=== PATIENT | male | born 1965 | race Hispanic/Latino ===

== ENCOUNTER 2016-10-03 23:57 | Emergency (ER) | payer MEDICAID ==
[2016-10-03 23:57] VITALS: BMI 31.7
[2016-10-04] MEDS ORDERED: Sodium Chloride 0.9% 1,000 ML IV ONE (00:22)
[2016-10-04] MEDS ORDERED: Albuterol-Ipratrop 3 mg / 0.5 (3 ml) UD INH STA (00:22)
--- NOTE | 2016-10-04 00:24 | C.PDOC ---
History Of Present Illness 51 y/o male presents to ED with c/o chest discomfort and SOB. Patient reports history of COPD and notes he ran out of his medications. Otherwise, denies dizziness, fever, chills, nausea, vomiting, or other associated symptoms. Time Seen by Provider: 10/04/16 00:17 Chief Complaint (Nursing): Chest Pain History Per: Patient History/Exam Limitations: no limitations Onset/Duration Of Symptoms: Days Current Symptoms Are (Timing): Still Present Associated Symptoms: Dyspnea Recent travel outside of the [place]: No Past Medical History Reviewed: Historical Data, Nursing Documentation, Vital Signs Vital Signs: Last Vital Signs Temp 98.7 F 10/04/16 02:30 Pulse 77 10/04/16 02:30 Resp 20 10/04/16 02:30 BP 146/80 10/04/16 02:30 Pulse Ox 96 10/04/16 02:30 - Medical History PMH: Anxiety, Arthritis, Back Problems (chronic back pain ), Bipolar Disorder, COPD, Depression, Emphysema, Fractures (skull, right arm, right pinky), HTN, Pneumonia, Sleep Apnea Surgical History: Appendectomy, Hernia Repair (ventral), Tonsillectomy Family History: States: Unknown Family Hx - Social History Hx Tobacco Use: Yes Hx Alcohol Use: Yes Hx Substance Use: Yes (Occasional Marajuana use) - Immunization History Hx Tetanus Toxoid Vaccination: Yes (UTD) Hx Influenza Vaccination: Yes Hx Pneumococcal Vaccination: No Review Of Systems Except As Marked, All Systems Reviewed And Found Negative. Constitutional: Negative for: Fever, Chills Cardiovascular: Positive for: Chest Pain Respiratory: Positive for: Shortness of Breath. Negative for: Cough Gastrointestinal: Negative for: Nausea, Vomiting, Abdominal Pain Skin: Negative for: Rash Neurological: Negative for: Dizziness Physical Exam - Physical Exam Appears: Non-toxic, No Acute Distress Skin: Normal Color, Warm, Dry Head: Atraumatic, Normacephalic Chest: Symmetrical Cardiovascular: Rhythm Regular Respiratory: No Accessory Muscle Use, No Rales, Rhonchi (bilateral ), Wheezing ( expiratory bilateral ), Other (mildy dyspneic) Gastrointestinal/Abdominal: Soft, No Tenderness, No Guarding, No Rebound Back: Normal Inspection Extremity: Normal ROM, Capillary Refill (< 2 sec. ) Neurological/Psych: Oriented x3, Normal Speech, Normal Cognition ED Course And Treatment - Laboratory Results Result Diagrams: 10/04/16 00:47 10/04/16 00:47 ECG: Interpreted By Me, Viewed By Me ECG Rhythm: Sinus Rhythm ECG Interpretation: Normal Interpretation Of ECG: NSR, normal tracings. Rate From EC (bpm) O2 Sat by Pulse Oximetry: 93 Pulse Ox Interpretation: Abnormal Progress Note: EKG, CxR, cardiac labs/bloodwork ordered and reviewed. Treated with duoneb, prednisone, and IVFs. @02:20 - Patient is no longer dyspneic, with good air entry, and clear lung sounds. No longer has rhonchi. Disposition Counseled Patient/Family Regarding: Diagnosis - Disposition Referrals: [facility] [Outside] Disposition: HOME/ ROUTINE Disposition Time: 02:35 Condition: IMPROVED Prescriptions: Methylprednisolone [Medrol Dose Pack (21 tabs)] 4 mg PO DAILY #21 mg Albuterol Sulfate [Proventil Hfa] 6.7 gm IH Q6 #1 hfa.aer.ad Instructions: COPD (Chronic Obstructive Pulmonary Disease) (GEN) - POA Present On Arrival: None - Clinical Impression Clinical Impression: Pulmonary emphysema - Scribe Statement The provider has reviewed the documentation as recorded by the Scribe Provider Attestation: Barrie Lawton Provider Scribe Attestation: All medical record entries made by the Scribe were at my direction and personally dictated by me. I have reviewed the chart and agree that the record accurately reflects my personal performance of the history, physical exam, medical decision making, and the department course for this patient. I have also personally directed, reviewed, and agree with the discharge instructions and disposition.
[2016-10-04] MEDS ORDERED: Albuterol-Ipratrop 3 mg / 0.5 (3 ml) UD ONE (00:26)
[2016-10-04 00:51] LABS: BASO % 0.6 % (0.0-2.0); EOS # 0.1 K/uL (0.0-0.7); EOS % 0.9 % (0.0-4.0); HEMATOCRIT 49.4 % (35.0-51.0); LYMPH # 1.4 K/uL (1.0-4.3); LYMPH % 18.8 % (20.0-40.0); MEAN CELL VOLUME 96.1 fL (80.0-94.0); MEAN CORPUSCULAR HEMOGLOBIN 32.3 pg (27.0-31.0); MEAN CORPUSCULAR HGB CONC 33.7 g/dL (33.0-37.0); MEAN PLATELET VOLUME 8.2 fL (7.2-11.7); MONO # 0.6 K/uL (0.0-0.8); MONO % 7.5 % (0.0-10.0); NRBC % 0.1 % (0.0-2.0); RED CELL DISTRIBUTION WIDTH 14.4 % (11.5-14.5); WHITE BLOOD COUNT 7.4 K/uL (4.8-10.8)
[2016-10-04 00:53] VITALS: RESP 20
[2016-10-04 01:02] LABS: CHLORIDE 100 mmol/L (98-107); SODIUM 139 mmol/L (132-148)
[2016-10-04 01:03] LABS: POTASSIUM 3.6 mmol/L (3.6-5.2)
[2016-10-04 01:05] LABS: ALB/GLOB RATIO 1.1 (1.0-2.1); ALKALINE PHOSPHATASE 85 U/L (38-126); AST/SGOT 92 U/L (17-59); BILIRUBIN,TOTAL 0.5 mg/dL (0.2-1.3); BLOOD UREA NITROGEN 12 mg/dL (9-20); CARBON DIOXIDE 26 mmol/L (22-30); GFR AFRICAN-AMERICAN > 60; GLUCOSE,RANDOM 168 mg/dL (75-110); TOTAL PROTEIN 6.8 g/dL (6.3-8.3)
[2016-10-04 01:06] LABS: ALT/SGPT 169 U/L (21-72); CALCIUM 8.5 mg/dl (8.6-10.4)
[2016-10-04] MEDS ORDERED: Albuterol HFA 90 mcg/actuation (8 g) INH STA (02:41)
[2016-10-04 05:06] VITALS: BP 159/64; PULSE 68; TEMP 98; O2SAT 98
--- NOTE | 2016-10-04 08:49 | RAD ---
PROCEDURE: CHEST RADIOGRAPH, 1 VIEW HISTORY: Shortness of breath COMPARISON: 05/27/2016 FINDINGS: LUNGS: Mild venous congestion. Bilateral hilar prominence. ; left greater than right. Bibasilar airspace opacities. PLEURA: No pneumothorax or pleural fluid seen. CARDIOVASCULAR: Tortuous ectatic aorta. OSSEOUS STRUCTURES: No significant abnormalities. VISUALIZED UPPER ABDOMEN: Normal. OTHER FINDINGS: None. IMPRESSION: Mild venous congestion. Bilateral hilar prominence. ; left greater than right. Bibasilar airspace opacities.
--- NOTE | 2016-10-27 11:05 | CARD ---
APPROVED REPORT EKG Measurement Heart [id number] 114P36 [id number] <Conclusion> Normal sinus rhythm Normal ECG
== END 2016-10-04 05:18 | disposition home or self-care (01) ==
LOC: C.ER 23:57
DX: J43.9 Emphysema, unspecified (principal)
CPT/HCPCS: 71010; 80053; 83880; 84484; 85025; 85378; 94640; 96361; 96374; 99285; J2930; J7040

== ENCOUNTER 2016-10-14 02:34 | Emergency (ER) | payer MEDICAID ==
[2016-10-14 02:35] VITALS: BMI 31.7
--- NOTE | 2016-10-14 03:20 | C.PDOC ---
History Of Present Illness 51 year old male presents to the ED with c/o recurring chest pain and SOB that began this evening. Pt describes pain as being on the left side of the chest radiating to the left arm. Pt states "Its happening due to anxiety and depression". Pt has had multiple prior visits at [facility] and [facility] for the same complaints. Pt notes receiving insurance card yesterday and had not been able to follow up. Pt denies fever, chills, dizziness, nausea, vomiting, diarrhea, or any other complaints. RECUR CP, SOB THIS EVENING. L SIDED RADIATION L ARM. +SOB. "ITS HAPPENING DUE TO ANXIETY AND DEPRESSION". MULT PRIOR VISITS @ [facility] AND [facility] FOR SAME. PS GOT INSURANCE CARD YEST AND HAS NOT BEEN ABLE TO FOLLOW UP. EXAM APPEARS COMFORTABLE NAD NONTOXIC LUNGS NEG REMAINDER NEG Time Seen by Provider: 10/14/16 03:01 Chief Complaint (Nursing): Chest Pain History Per: Patient History/Exam Limitations: no limitations Onset/Duration Of Symptoms: Hrs (SOB), Intermittent Episodes (Chest pain, left side) Current Symptoms Are (Timing): Still Present Severity: Mild Associated Symptoms: denies: Nausea Past Medical History Reviewed: Historical Data, Nursing Documentation, Vital Signs Vital Signs: Last Vital Signs Temp 97.2 F L 10/14/16 02:43 Pulse 70 10/14/16 02:43 Resp 14 10/14/16 02:43 BP 125/80 10/14/16 02:43 Pulse Ox 97 10/14/16 04:15 - Medical History PMH: Anxiety, Arthritis, Back Problems (chronic back pain ), Bipolar Disorder, COPD, Depression, Emphysema, Fractures (skull, right arm, right pinky), HTN, Pneumonia, Sleep Apnea Denies: Chronic Kidney Disease Surgical History: Appendectomy, Hernia Repair (ventral), Tonsillectomy Family History: States: Unknown Family Hx - Social History Hx Tobacco Use: Yes Hx Alcohol Use: Yes Hx Substance Use: Yes (Occasional Marajuana use) - Immunization History Hx Tetanus Toxoid Vaccination: Yes (UTD) Hx Influenza Vaccination: Yes Hx Pneumococcal Vaccination: No Review Of Systems Except As Marked, All Systems Reviewed And Found Negative. Constitutional: Negative for: Fever, Chills Cardiovascular: Positive for: Chest Pain Respiratory: Positive for: Shortness of Breath Gastrointestinal: Negative for: Nausea, Vomiting, Diarrhea Neurological: Negative for: Dizziness Physical Exam - Physical Exam Appears: Non-toxic, No Acute Distress (comfortable) Skin: Warm, Dry Head: Atraumatic, Normacephalic Eye(s): bilateral: Normal Inspection Chest: Symmetrical, No Tenderness Respiratory: Normal Breath Sounds, No Rales, No Rhonchi, No Wheezing Gastrointestinal/Abdominal: Soft, No Tenderness Neurological/Psych: Oriented x3, Normal Speech, Normal Cognition, Other (No focal deficit) ED Course And Treatment - Laboratory Results Result Diagrams: 10/14/16 04:02 10/14/16 04:02 ECG: Interpreted By Me ECG Rhythm: Sinus Rhythm ECG Interpretation: Normal Rate From EC O2 Sat by Pulse Oximetry: 97 (Room air) Pulse Ox Interpretation: Normal Progress - Data Reviewed Data Reviewed: Lab, Diagnostic imaging, EKG, Old records Medical Decision Making Medical Decision Making: Plans: -EKG -Labs -Blood works -CXR -IV fluids -Reassess and disposition Disposition Counseled Patient/Family Regarding: Studies Performed, Diagnosis, Need For Followup, Rx Given, Smoking Cessation - Disposition Referrals: [facility] [Outside] [facility] [Outside] Disposition: HOME/ ROUTINE Disposition Time: 05:15 Condition: GOOD Instructions: Chest Pain (ED) - Clinical Impression Clinical Impression: Chest pain - Scribe Statement The provider has reviewed the documentation as recorded by the Scribe Cristiano hardwick All medical record entries made by the Scribe were at my direction and personally dictated by me. I have reviewed the chart and agree that the record accurately reflects my personal performance of the history, physical exam, medical decision making, and the department course for this patient. I have also personally directed, reviewed, and agree with the discharge instructions and disposition.
[2016-10-14 04:07] LABS: BASO # 0.1 K/uL (0.0-0.2); BASO % 1.3 % (0.0-2.0); EOS # 0.3 K/uL (0.0-0.7); EOS % 4.1 % (0.0-4.0); HEMATOCRIT 51.7 % (35.0-51.0); LYMPH # 2.3 K/uL (1.0-4.3); LYMPH % 34.8 % (20.0-40.0); MEAN CELL VOLUME 95.9 fL (80.0-94.0); MEAN CORPUSCULAR HEMOGLOBIN 32.3 pg (27.0-31.0); MEAN CORPUSCULAR HGB CONC 33.6 g/dL (33.0-37.0); MEAN PLATELET VOLUME 8.2 fL (7.2-11.7); MONO # 0.6 K/uL (0.0-0.8); MONO % 8.7 % (0.0-10.0); RED CELL DISTRIBUTION WIDTH 14.7 % (11.5-14.5); WHITE BLOOD COUNT 6.5 K/uL (4.8-10.8)
[2016-10-14 04:14] LABS: CHLORIDE 99 mmol/L (98-107)
[2016-10-14 04:15] LABS: SODIUM 146 mmol/L (132-148)
[2016-10-14 04:17] LABS: ALB/GLOB RATIO 1.4 (1.0-2.1); ALKALINE PHOSPHATASE 91 U/L (38-126); ALT/SGPT 335 U/L (21-72); AST/SGOT 170 U/L (17-59); BILIRUBIN,TOTAL 0.7 mg/dL (0.2-1.3); BLOOD UREA NITROGEN 10 mg/dL (9-20); CARBON DIOXIDE 29 mmol/L (22-30); GFR AFRICAN-AMERICAN > 60; TOTAL PROTEIN 6.7 g/dL (6.3-8.3)
[2016-10-14 04:18] LABS: CALCIUM 8.7 mg/dl (8.6-10.4); GLUCOSE,RANDOM 125 mg/dL (75-110)
[2016-10-14 05:36] VITALS: BP 124/72; PULSE 73; RESP 20; TEMP 97.8; O2SAT 95
--- NOTE | 2016-10-14 10:49 | RAD ---
PROCEDURE: CHEST RADIOGRAPH, 1 VIEW HISTORY: chest pain COMPARISON: 10/04/2016 FINDINGS: LUNGS: Moderate venous congestion with bilateral hilar prominence. Bibasilar airspace opacities. PLEURA: No pneumothorax or pleural fluid seen. CARDIOVASCULAR: Normal. OSSEOUS STRUCTURES: No significant abnormalities. VISUALIZED UPPER ABDOMEN: Normal. OTHER FINDINGS: None. IMPRESSION: Moderate venous congestion with bilateral hilar prominence. Bibasilar airspace opacities.
--- NOTE | 2016-10-18 12:36 | CARD ---
APPROVED REPORT EKG Measurement Heart [id number] 126P18 [id number] <Conclusion> Normal sinus rhythm Incomplete right bundle branch block Borderline ECG
== END 2016-10-14 05:48 | disposition home or self-care (01) ==
LOC: C.ER 02:34
DX: R07.9 Chest pain, unspecified (principal)

== ENCOUNTER 2016-10-22 02:38 | Emergency (ER) | payer MEDICAID ==
[2016-10-22 02:39] VITALS: BMI 31.7
--- NOTE | 2016-10-22 03:03 | C.PDOC ---
Time Seen by Provider: 10/22/16 03:03 Chief Complaint (Nursing): Chest Pain Past Medical History - Medical History PMH: Anxiety, Arthritis, Back Problems (chronic back pain ), Bipolar Disorder, COPD, Depression, Emphysema, Fractures (skull, right arm, right pinky), HTN, Pneumonia, Sleep Apnea Denies: Chronic Kidney Disease Surgical History: Appendectomy, Hernia Repair (ventral), Tonsillectomy Family History: States: Unknown Family Hx - Social History Hx Tobacco Use: Yes Hx Alcohol Use: Yes Hx Substance Use: Yes (Occasional Marajuana use) - Immunization History Hx Tetanus Toxoid Vaccination: Yes (UTD) Hx Influenza Vaccination: Yes Hx Pneumococcal Vaccination: No ED Course And Treatment ECG: Interpreted By Me, Viewed By Me ECG Rhythm: Sinus Rhythm (69), Nonspecific Changes O2 Sat by Pulse Oximetry: 99 Pulse Ox Interpretation: Normal
[2016-10-22 03:13] VITALS: RESP 16
--- NOTE | 2016-10-22 03:14 | C.PDOC ---
History Of Present Illness Patient presents to ED with initial complaint of chest pain but upon speaking to patient, he states he has been drinking and needs a place to stay. Patient presents abrasion on forehead. Patient denies fever, chills, nausea/vomiting and diarrhea. Patient presents alcohol in breath. Time Seen by Provider: 10/22/16 03:03 Chief Complaint (Nursing): Chest Pain History Per: Patient History/Exam Limitations: no limitations Onset/Duration Of Symptoms: Days Severity: Mild Pain Scale Rating Of: 2 Reports Recently: Seen In ED, Treated By A Physician, Hospitalized Recent travel outside of the [place]: No Additional History Per: Patient Past Medical History Reviewed: Historical Data, Nursing Documentation, Vital Signs Vital Signs: Last Vital Signs Temp 97.9 F 10/22/16 05:52 Pulse 82 10/22/16 05:52 Resp 16 10/22/16 05:52 BP 140/85 10/22/16 05:52 Pulse Ox 95 10/22/16 05:52 - Medical History PMH: Anxiety, Arthritis, Back Problems (chronic back pain ), Bipolar Disorder, COPD, Depression, Emphysema, Fractures (skull, right arm, right pinky), HTN, Pneumonia, Sleep Apnea Surgical History: Appendectomy, Hernia Repair (ventral), Tonsillectomy Family History: States: No Known Family Hx - Social History Hx Tobacco Use: Yes Hx Alcohol Use: Yes Hx Substance Use: Yes (Occasional Marajuana use) - Immunization History Hx Tetanus Toxoid Vaccination: Yes (UTD) Hx Influenza Vaccination: Yes Hx Pneumococcal Vaccination: No Review Of Systems Constitutional: Negative for: Fever, Chills Eyes: Negative for: Pain, Vision Change Skin: Positive for: Lesions (Abrasion in forehead). Negative for: Rash Neurological: Negative for: Change in Speech, Seizures, Dizziness Psych: Negative for: Anxiety Physical Exam - Physical Exam Appears: Non-toxic Skin: Warm Head: Abrasion (Forehead) Eye(s): bilateral: Normal Inspection, PERRL, EOMI Oral Mucosa: Moist Cardiovascular: Rhythm Regular Respiratory: No Rales, No Rhonchi, No Wheezing Neurological/Psych: Oriented x3, Normal Speech, Normal Cognition Gait: Steady ED Course And Treatment O2 Sat by Pulse Oximetry: 93 (Room air) Pulse Ox Interpretation: Normal Reevaluation Time: 06:03 Reassessment Condition: Improved Disposition Counseled Patient/Family Regarding: Studies Performed, Diagnosis, Need For Followup - Disposition Disposition: HOME/ ROUTINE Disposition Time: 03:13 Condition: GOOD - Clinical Impression Clinical Impression: Alcohol abuse - PA / [employer]PER[employer] / Resident Statement MD/DO has reviewed & agrees with the documentation as recorded. - Scribe Statement The provider has reviewed the documentation as recorded by the Cathyibotis Barrett All medical record entries made by the Elder were at my direction and personally dictated by me. I have reviewed the chart and agree that the record accurately reflects my personal performance of the history, physical exam, medical decision making, and the department course for this patient. I have also personally directed, reviewed, and agree with the discharge instructions and disposition.
[2016-10-22 05:54] VITALS: BP 140/85; PULSE 82; TEMP 97.9
[2016-10-22 06:04] VITALS: O2SAT 93
--- NOTE | 2016-10-23 13:15 | CARD ---
APPROVED REPORT EKG Measurement Heart [id number] 124P30 [id number] <Conclusion> Normal sinus rhythm Normal ECG
== END 2016-10-22 05:54 | disposition home or self-care (01) ==
LOC: C.ER 02:38
DX: F10.10 Alcohol abuse, uncomplicated (principal); Y90.9 Presence of alcohol in blood, level not specified

== ENCOUNTER 2016-10-25 00:21 | Observation (INO) | payer MEDICAID ==
[2016-10-25 00:21] VITALS: BMI 31.7
--- NOTE | 2016-10-25 00:45 | C.PDOC ---
History Of Present Illness Patient presents to the ED with complaints of cough. Patient is well known to this ED for being undomicilied and is making various demands. Patient was seen at [facility] and was discharged. Patient notes he still smokes and has no other complaints at this time. Time Seen by Provider: 10/25/16 00:45 Chief Complaint (Nursing): Cough, Cold, Congestion History Per: Patient History/Exam Limitations: no limitations Onset/Duration Of Symptoms: Hrs Current Symptoms Are (Timing): Still Present Past Medical History Reviewed: Historical Data, Nursing Documentation, Vital Signs Vital Signs: Last Vital Signs Temp 98.6 F 10/25/16 00:23 Pulse 98 H 10/25/16 00:23 Resp 22 10/25/16 00:23 BP 113/70 10/25/16 00:23 Pulse Ox 92 L 10/25/16 02:48 - Medical History PMH: Anxiety, Arthritis, Back Problems (chronic back pain ), Bipolar Disorder, COPD, Depression, Emphysema, Fractures (skull, right arm, right pinky), HTN, Pneumonia, Sleep Apnea Surgical History: Appendectomy, Hernia Repair (ventral), Tonsillectomy Family History: States: Unknown Family Hx - Social History Hx Tobacco Use: Yes Hx Alcohol Use: Yes Hx Substance Use: Yes (Occasional Marajuana use) - Immunization History Hx Tetanus Toxoid Vaccination: Yes (UTD) Hx Influenza Vaccination: Yes Hx Pneumococcal Vaccination: No Review Of Systems Constitutional: Negative for: Fever, Chills, Sweats Cardiovascular: Negative for: Chest Pain, Palpitations Respiratory: Positive for: Cough. Negative for: Shortness of Breath Gastrointestinal: Negative for: Nausea, Vomiting, Abdominal Pain, Diarrhea Physical Exam - Physical Exam Appears: Non-toxic, No Acute Distress Skin: Warm, Dry Head: Abrasion (left side of forehead that is not new) Neck: Normal ROM, Supple Cardiovascular: Rhythm Regular Respiratory: No Accessory Muscle Use, No Rales, Rhonchi (scattered rhonci), No Stridor, No Wheezing Gastrointestinal/Abdominal: Soft, No Tenderness, No Distention, No Guarding, No Rebound Extremity: Normal ROM, No Tenderness Neurological/Psych: Oriented x3 ED Course And Treatment O2 Sat by Pulse Oximetry: 92 Pulse Ox Interpretation: Normal Reevaluation Time: 05:19 Reassessment Condition: Improved Disposition Counseled Patient/Family Regarding: Studies Performed, Diagnosis, Need For Followup - Disposition Disposition: HOME/ ROUTINE Disposition Time: 00:45 Condition: FAIR - Clinical Impression Clinical Impression: COPD (chronic obstructive pulmonary disease) - Scribe Statement The provider has reviewed the documentation as recorded by the Scribotis Torres All medical record entries made by the Cathyibe were at my direction and personally dictated by me. I have reviewed the chart and agree that the record accurately reflects my personal performance of the history, physical exam, medical decision making, and the department course for this patient. I have also personally directed, reviewed, and agree with the discharge instructions and disposition.
[2016-10-25] MEDS ORDERED: Albuterol-Ipratrop 3 mg / 0.5 (3 ml) UD ONE (00:56)
[2016-10-25] MEDS: Albuterol-Ipratrop 3 mg / 0.5 (3 ml) UD IH SCH (01:41)
[2016-10-25 05:53] VITALS: BP 110/70; PULSE 80; RESP 14; TEMP 97.5; O2SAT 95
== END 2016-10-25 05:20 | disposition home or self-care (01) ==
LOC: C.ER 00:21 → C.9OBSV 02:47
PROVIDERS: ADMIT Emergency Medicine; ATTEND Emergency Medicine
DX: J44.9 Chronic obstructive pulmonary disease, unspecified (principal); G47.30 Sleep apnea, unspecified; I10 Essential (primary) hypertension; F17.200 Nicotine dependence, unspecified, uncomplicated

== ENCOUNTER 2016-11-02 02:20 | Emergency (ER) | payer MEDICAID ==
[2016-11-02 02:23] VITALS: BMI 31.7
[2016-11-02 02:36] VITALS: BP 100/63; PULSE 91; RESP 18; TEMP 98; O2SAT 94
--- NOTE | 2016-11-02 02:48 | C.PDOC ---
History Of Present Illness patient presents with some wwheezing and mild shortness of breath. NO f/c/n/v. Speaking in complete sentences. Pt is homeless and had no place to use his nebulizer. Patient still smokes Time Seen by Provider: 11/02/16 02:48 Chief Complaint (Nursing): Shortness Of Breath History Per: Patient History/Exam Limitations: no limitations Onset/Duration Of Symptoms: Days Current Symptoms Are (Timing): Still Present Initiating Event: Out Of Medications Exacerbating Factor(s): Coughing Current Respiratory Medications: See Home Med List Severity: Mild Pain Scale Rating Of: 2 Associated Symptoms: denies: Fever, Chills, Sweating, Productive Cough Reports Recently: Seen In ED, Treated By A Physician, Hospitalized Recent travel outside of the [place]: No Additional History Per: Patient Past Medical History Reviewed: Historical Data, Nursing Documentation, Vital Signs Vital Signs: Last Vital Signs Temp 98.0 F 11/02/16 02:33 Pulse 91 H 11/02/16 02:33 Resp 18 11/02/16 02:33 BP 100/63 11/02/16 02:33 Pulse Ox 94 L 11/02/16 02:55 - Medical History PMH: Anxiety, Arthritis, Back Problems (chronic back pain ), Bipolar Disorder, COPD, Depression, Emphysema, Fractures (skull, right arm, right pinky), HTN, Pneumonia, Sleep Apnea Denies: Chronic Kidney Disease Surgical History: Appendectomy, Hernia Repair (ventral), Tonsillectomy Family History: States: No Known Family Hx - Social History Hx Tobacco Use: Yes Hx Alcohol Use: Yes Hx Substance Use: Yes (Occasional Marajuana use) - Immunization History Hx Tetanus Toxoid Vaccination: Yes (UTD) Hx Influenza Vaccination: Yes Hx Pneumococcal Vaccination: No Review Of Systems Constitutional: Negative for: Fever, Chills ENT: Negative for: Throat Pain Cardiovascular: Negative for: Chest Pain Respiratory: Positive for: Shortness of Breath, Wheezing (few at bases) Gastrointestinal: Negative for: Nausea, Vomiting, Abdominal Pain Genitourinary: Negative for: Dysuria Musculoskeletal: Negative for: Back Pain Skin: Negative for: Rash, Lesions, Jaundice Neurological: Negative for: Weakness Psych: Negative for: Anxiety Physical Exam - Physical Exam Appears: Non-toxic, No Acute Distress Skin: Warm, Dry Eye(s): bilateral: Normal Inspection Nose: No Flaring Oral Mucosa: Moist Neck: Supple Chest: Symmetrical Cardiovascular: Rhythm Regular Respiratory: No Rales, No Rhonchi, Wheezing (few at bases) Gastrointestinal/Abdominal: Soft, No Tenderness Back: No CVA Tenderness Extremity: No Tenderness Neurological/Psych: Oriented x3, Normal Speech, Normal Cognition Gait: Steady ED Course And Treatment O2 Sat by Pulse Oximetry: 94 Pulse Ox Interpretation: Normal Progress Note: nebs Reassessment Condition: Improved Disposition Counseled Patient/Family Regarding: Studies Performed, Diagnosis - Disposition Disposition: HOSPITALIZED Disposition Time: 02:48 Condition: FAIR - Clinical Impression Clinical Impression: COPD (chronic obstructive pulmonary disease)
[2016-11-02] MEDS ORDERED: Albuterol-Ipratrop 3 mg / 0.5 (3 ml) UD ONE (03:15)
[2016-11-02] MEDS: Albuterol-Ipratrop 3 mg / 0.5 (3 ml) UD IH SCH (03:19)
== END 2016-11-02 06:10 | disposition short-term general hospital (02) ==
LOC: C.ER 02:20
DX: J44.9 Chronic obstructive pulmonary disease, unspecified (principal); Z72.0 Tobacco use; Z59.0 Homelessness

== ENCOUNTER 2016-12-14 23:36 | Observation (INO) | payer MEDICAID ==
[2016-12-14 23:36] VITALS: BMI 31.7
--- NOTE | 2016-12-15 00:38 | C.PDOC ---
History Of Present Illness <NiravCathy Madeline - Last Filed: 12/15/16 06:21> <Landy Puentes - Last Filed: 12/15/16 06:43> 51 year old male, with a past medical history of COPD and social history of actively smoking, presents to the ED complaining of wheezing and shortness of breath tonight with no relief after using his Ventolin inhaler. He states cough is productive of clear sputum. Patient denies fever, chest or back pain. ( Cathy Gastelum) History Per: Patient History/Exam Limitations: no limitations Onset/Duration Of Symptoms: Days (tonight) Current Symptoms Are (Timing): Still Present Initiating Event: Upper Respiratory Illness Exacerbating Factor(s): Coughing Current Respiratory Medications: Other (Ventolin) Severity: Mild Pain Scale Rating Of: 3 Associated Symptoms: Productive Cough Additional History Per: Prior Records <NiravCathy Madeline - Last Filed: 12/15/16 06:21> <Landy Puentes - Last Filed: 12/15/16 06:43> Time Seen by Provider: 12/15/16 00:28 Chief Complaint (Nursing): Cough, Cold, Congestion Past Medical History Reviewed: Historical Data, Nursing Documentation, Vital Signs - Medical History PMH: Anxiety, Arthritis, Back Problems (chronic back pain ), Bipolar Disorder, COPD, Depression, Emphysema, Fractures (skull, right arm, right pinky), HTN, Pneumonia, Sleep Apnea Surgical History: Appendectomy, Hernia Repair (ventral), Tonsillectomy Family History: States: Unknown Family Hx - Social History Hx Tobacco Use: Yes Hx Alcohol Use: Yes Hx Substance Use: No - Immunization History Hx Tetanus Toxoid Vaccination: Yes (UTD) Hx Influenza Vaccination: Yes Hx Pneumococcal Vaccination: Yes <GastelumCathy Madeline - Last Filed: 12/15/16 06:21> Review Of Systems Except As Marked, All Systems Reviewed And Found Negative. Constitutional: Negative for: Fever Cardiovascular: Negative for: Chest Pain Respiratory: Positive for: Cough, Shortness of Breath, Wheezing Musculoskeletal: Negative for: Back Pain <NiravCathy Madeline - Last Filed: 12/15/16 06:21> Physical Exam - Physical Exam Appears: Non-toxic, No Acute Distress, Unkempt Skin: Warm, Dry, Other (superficial old abrasions to nose and face) Head: Atraumatic, Normacephalic Neck: Normal ROM, Supple Chest: Symmetrical Cardiovascular: Rhythm Regular Respiratory: No Rales, Rhonchi (at bases), Wheezing (expiratory) Back: Normal Inspection Extremity: Normal ROM, Capillary Refill (<2 seconds), No Deformity, No Swelling , Other (left foot: non-focal, mild tenderness to the dorsal aspect; no swelling , no deformity, no erythema) Neurological/Psych: Oriented x3, Normal Speech, Normal Cognition Gait: Steady <Cathy Gastelum - Last Filed: 12/15/16 06:21> ED Course And Treatment - Laboratory Results Result Diagrams: 12/15/16 00:50 12/15/16 00:50 Lab Interpretation: No Acute Changes O2 Sat by Pulse Oximetry: 96 (room air) Pulse Ox Interpretation: Normal - Radiology CXR: Interpreted by Me, Viewed By Me CXR Interpretation: Yes: COPD <Cathy Gastelum - Last Filed: 12/15/16 06:21> - Laboratory Results Result Diagrams: 12/15/16 00:50 12/15/16 00:50 <Landy Puentes - Last Filed: 12/15/16 06:43> Medical Decision Making <Cathy Gastelum - Last Filed: 12/15/16 06:21> <Landy Puentes - Last Filed: 12/15/16 06:43> Medical Decision Making: Impression: 51 year old patient with wheezing, shortness of breath and left foot pain Plan: * Labs * Duoneb * Solu-Medrol * Left foot x-ray * Chest x-ray Progress: Prior records show patient seen in ED multiple times for similar symptoms, homeless (Cathy Gastelum) ED OBSERVATION Discharge: Yes Date of observation admission: 12/15/16 Time of observation admission: 00:40 <Cathy Gastelum - Last Filed: 12/15/16 06:21> <Landy Puentes - Last Filed: 12/15/16 06:43> - Observation admission statement Patient is being placed in observation because:: SOB (Cathy Gastelum) - Goals of Observation Goals of observation are:: duonebs, steroids, labs, CXR (Cathy Gastelum) - Progress Note Progress Note: 12/15/16 01:39 Patient complains of foot pain, Tylenol PO ordered. Lung sounds mostly improved 12/15/16 03:39 Patient is sleeping comfortably, no acute distress. 12/15/16 05:44 Patient is now awake and alert, no SOB. Patient stable for discharge (Cathy Gastelum) Disposition - Disposition Disposition Time: 05:30 - POA Present On Arrival: None <Cathy Gastelum - Last Filed: 12/15/16 06:21> <Landy Puentes - Last Filed: 12/15/16 06:43> - Disposition Disposition: HOME/ ROUTINE Condition: STABLE - Clinical Impression Clinical Impression: COPD exacerbation - PA / EMPLOYMENT PROGRAMS ANALYST / Resident Statement / has reviewed & agrees with the documentation as recorded. - Scribe Statement The provider has reviewed the documentation as recorded by the Scribe <Cathy Gastelum - Last Filed: 12/15/16 06:21> - PA / EMPLOYMENT PROGRAMS ANALYST / Resident Statement ADEN has reviewed & agrees with the documentation as recorded. <Landy Puentes - Last Filed: 12/15/16 06:43> - Scribe Statement Kimberli Fontenot All medical record entries made by the Scribe were at my direction and personally dictated by me. I have reviewed the chart and agree that the record accurately reflects my personal performance of the history, physical exam, medical decision making, and the department course for this patient. I have also personally directed, reviewed, and agree with the discharge instructions and disposition. (Cathy Gastelum)
[2016-12-15 00:54] LABS: BASO # 0.1 K/uL (0.0-0.2); BASO % 0.8 % (0.0-2.0); EOS # 0.2 K/uL (0.0-0.7); EOS % 2.2 % (0.0-4.0); HEMATOCRIT 49.2 % (35.0-51.0); LYMPH % 25.4 % (20.0-40.0); MEAN CELL VOLUME 96.2 fL (80.0-94.0); MEAN CORPUSCULAR HEMOGLOBIN 32.9 pg (27.0-31.0); MEAN CORPUSCULAR HGB CONC 34.3 g/dL (33.0-37.0); MEAN PLATELET VOLUME 7.9 fL (7.2-11.7); MONO # 0.8 K/uL (0.0-0.8); MONO % 10.4 % (0.0-10.0); RED CELL DISTRIBUTION WIDTH 14.8 % (11.5-14.5); WHITE BLOOD COUNT 7.9 K/uL (4.8-10.8)
[2016-12-15 01:09] LABS: CHLORIDE 97 mmol/L (98-107); POTASSIUM 3.7 mmol/L (3.6-5.2); SODIUM 136 mmol/L (132-148)
[2016-12-15 01:11] LABS: BILIRUBIN,TOTAL 0.7 mg/dL (0.2-1.3); GFR AFRICAN-AMERICAN > 60
[2016-12-15 01:12] LABS: ALB/GLOB RATIO 1.4 (1.0-2.1); ALKALINE PHOSPHATASE 103 U/L (38-126); ALT/SGPT 107 U/L (21-72); AST/SGOT 68 U/L (17-59); BLOOD UREA NITROGEN 17 mg/dL (9-20); CARBON DIOXIDE 26 mmol/L (22-30); GLUCOSE,RANDOM 105 mg/dL (75-110); TOTAL PROTEIN 6.8 g/dL (6.3-8.3)
[2016-12-15 01:13] LABS: CALCIUM 9.1 mg/dl (8.6-10.4)
[2016-12-15] MEDS ORDERED: MethylPREDNISolone 40 mg Vial ONE (01:37)
[2016-12-15] MEDS ORDERED: Albuterol-Ipratrop 3 mg / 0.5 (3 ml) UD ONE (01:46)
[2016-12-15] MEDS: Albuterol-Ipratrop 3 mg / 0.5 (3 ml) UD IH SCH (01:48)
[2016-12-15 01:59] VITALS: RESP 20
[2016-12-15 03:33] VITALS: O2SAT 96
[2016-12-15 06:14] VITALS: BP 149/74; PULSE 104; TEMP 97.8
--- NOTE | 2016-12-15 08:38 | RAD ---
PROCEDURE: Left Foot Radiographs. HISTORY: c.o pain top of foot, no trauma COMPARISON: None. FINDINGS: BONES: Normal. No fracture. JOINTS: Normal. SOFT TISSUES: Normal. OTHER FINDINGS: None. IMPRESSION: Normal left foot radiographs.
--- NOTE | 2016-12-15 08:39 | RAD ---
HISTORY: SOB COMPARISON: 10/14/2016 TECHNIQUE: Chest PA and lateral FINDINGS: LUNGS: No active pulmonary disease. PLEURA: No significant pleural effusion identified. No pneumothorax apparent. CARDIOVASCULAR: Normal. OSSEOUS STRUCTURES: No significant abnormalities. VISUALIZED UPPER ABDOMEN: Normal. OTHER FINDINGS: None. IMPRESSION: No active disease.
== END 2016-12-15 05:45 | disposition home or self-care (01) ==
LOC: C.ER 23:36 → C.9OBSV 12-15 00:40
PROVIDERS: ADMIT Emergency Medicine; ATTEND Emergency Medicine
DX: J44.1 Chronic obstructive pulmonary disease with (acute) exacerbation (principal); I10 Essential (primary) hypertension; F17.210 Nicotine dependence, cigarettes, uncomplicated
CPT/HCPCS: 71020; 73630; 80053; 85025; 96374; G0378; J2930

== ENCOUNTER 2017-01-26 02:15 | Emergency (ER) | payer SELFPAY ==
[2017-01-26 02:16] VITALS: BMI 31.7
[2017-01-26 02:27] VITALS: O2SAT 95
--- NOTE | 2017-01-26 02:37 | C.PDOC ---
History Of Present Illness 51 y/o male presents to emergency department requesting a place to stay. Patient reports he is homeless. Also c/o some right lower leg pain. Denies trauma or injury. Patient previously evaluated for similar in this ER. Denies any other symptoms. Time Seen by Provider: 01/26/17 02:37 Chief Complaint (Nursing): Lower Extremity Problem/Injury History Per: Patient History/Exam Limitations: no limitations Onset/Duration Of Symptoms: Persistent Current Symptoms Are (Timing): Still Present Recent travel outside of the [place]: No Past Medical History Reviewed: Historical Data, Nursing Documentation, Vital Signs Vital Signs: Last Vital Signs Temp 97.7 F 01/26/17 02:24 Pulse 88 01/26/17 02:24 Resp 20 01/26/17 02:24 BP 143/103 H 01/26/17 02:24 Pulse Ox 95 01/26/17 04:33 - Medical History PMH: Anxiety, Arthritis, Back Problems (chronic back pain ), Bipolar Disorder, COPD, Depression, Emphysema, Fractures (skull, right arm, right pinky), HTN, Pneumonia, Sleep Apnea Surgical History: Appendectomy, Hernia Repair (ventral), Tonsillectomy Family History: States: Unknown Family Hx - Social History Hx Tobacco Use: Yes Hx Alcohol Use: Yes Hx Substance Use: No (pt denies) - Immunization History Hx Tetanus Toxoid Vaccination: Yes (UTD) Hx Influenza Vaccination: Yes Hx Pneumococcal Vaccination: Yes Review Of Systems Constitutional: Negative for: Fever, Chills Gastrointestinal: Negative for: Nausea, Vomiting Musculoskeletal: Positive for: Leg Pain Skin: Negative for: Rash Physical Exam - Physical Exam Appears: Non-toxic, No Acute Distress Skin: Warm, Dry Head: Atraumatic, Normacephalic Chest: Symmetrical Cardiovascular: Rhythm Regular Respiratory: No Rales, No Rhonchi, No Wheezing Gastrointestinal/Abdominal: Soft, No Tenderness Back: Normal Inspection Extremity: Normal ROM, No Tenderness, No Pedal Edema, No Calf Tenderness, Capillary Refill (< 2 sec. ), No Swelling Extremity: Bilateral: Normal Color And Temperature Neurological/Psych: Oriented x3, Normal Speech, Normal Cognition, Normal Motor, Normal Sensation ED Course And Treatment O2 Sat by Pulse Oximetry: 95 (RA) Pulse Ox Interpretation: Normal ED OBSERVATION Discharge: Yes Date of observation admission: 01/26/17 Time of observation admission: 04:32 - Observation admission statement Patient is being placed in observation because:: homeless - Goals of Observation Goals of observation are:: social service - Progress Note Progress Note: 01/26/17 04:32 vitals stable 01/26/17 05:36 vitals stable Disposition Counseled Patient/Family Regarding: Studies Performed, Diagnosis, Need For Followup - Disposition Referrals: [facility] [Outside] Disposition: HOME/ ROUTINE Disposition Time: 02:37 Condition: FAIR Instructions: Arthralgia (ED) - Clinical Impression Clinical Impression: Foot pain, bilateral - Scribe Statement The provider has reviewed the documentation as recorded by the Scribe Barrie Lawton All medical record entries made by the Elder were at my direction and personally dictated by me. I have reviewed the chart and agree that the record accurately reflects my personal performance of the history, physical exam, medical decision making, and the department course for this patient. I have also personally directed, reviewed, and agree with the discharge instructions and disposition.
[2017-01-26 06:01] VITALS: BP 169/90; PULSE 89; RESP 18; TEMP 98
== END 2017-01-26 06:06 | disposition home or self-care (01) ==
LOC: C.ER 02:15
DX: M79.672 Pain in left foot (principal); M79.671 Pain in right foot; Z59.0 Homelessness

== ENCOUNTER 2017-02-02 17:28 | Inpatient (IN) | payer MEDICAID ==
[2017-02-02 17:29] VITALS: BMI 32.3
[2017-02-02 18:31] LABS: BASO # 0.1 K/uL (0.0-0.2); EOS # 0.2 K/uL (0.0-0.7); EOS % 3.2 % (0.0-4.0); HEMATOCRIT 47.1 % (35.0-51.0); LYMPH # 1.4 K/uL (1.0-4.3); LYMPH % 21.7 % (20.0-40.0); MEAN CORPUSCULAR HEMOGLOBIN 33.8 pg (27.0-31.0); MEAN CORPUSCULAR HGB CONC 34.2 g/dL (33.0-37.0); MONO # 0.8 K/uL (0.0-0.8); MONO % 13.1 % (0.0-10.0); RED CELL DISTRIBUTION WIDTH 14.9 % (11.5-14.5); WHITE BLOOD COUNT 6.2 K/uL (4.8-10.8)
[2017-02-02 18:32] LABS: MEAN CELL VOLUME 98.9 fL (80.0-94.0)
[2017-02-02 18:42] LABS: CHLORIDE 98 mmol/L (98-107); POTASSIUM 3.5 mmol/L (3.6-5.2); SODIUM 140 mmol/L (132-148)
[2017-02-02 18:44] LABS: BILIRUBIN,TOTAL 0.8 mg/dL (0.2-1.3); GFR AFRICAN-AMERICAN > 60
[2017-02-02 18:45] LABS: URINE BILIRUBIN NEGATIVE (NEGATIVE); URINE BLOOD NEGATIVE (NEGATIVE); URINE COLOR Straw (YELLOW); URINE GLUCOSE (UA) NORMAL (Normal); URINE KETONE NEGATIVE (NEGATIVE); URINE LEUKOCYTE ESTERASE NEG Leu/uL (Negative); URINE PROTEIN NEGATIVE (NEGATIVE); URINE UROBILINOGEN NORMAL mg/dL (0.2-1.0); WBC URINE < 1 /hpf (0-5)
[2017-02-02 18:45] LABS: ALB/GLOB RATIO 1.2 (1.0-2.1); ALKALINE PHOSPHATASE 131 U/L (38-126); ALT/SGPT 175 U/L (21-72); AST/SGOT 145 U/L (17-59); BLOOD UREA NITROGEN 7 mg/dL (9-20); CALCIUM 8.6 mg/dl (8.6-10.4); CARBON DIOXIDE 26 mmol/L (22-30); GLUCOSE,RANDOM 118 mg/dL (75-110); TOTAL PROTEIN 6.5 g/dL (6.3-8.3)
[2017-02-02 18:46] LABS: ALCOHOL SERUM 257 mg/dl (0-10)
[2017-02-02] MEDS ORDERED: Albuterol-Ipratrop 3 mg / 0.5 (3 ml) UD IH STA (18:46)
[2017-02-02] MEDS ORDERED: Albuterol-Ipratrop 3 mg / 0.5 (3 ml) UD ONE (18:52)
--- NOTE | 2017-02-02 23:26 | C.PDOC ---
History Of Present Illness Pt is here requesting detox from alcohol. Time Seen by Provider: 02/02/17 18:13 Chief Complaint (Nursing): Substance Abuse History Per: Patient History/Exam Limitations: intoxication Onset/Duration Of Symptoms: Days Current Symptoms Are (Timing): Still Present Suicide/Self Injury Attempted (Context): None Modifying Factor(s): Alcohol, Marijuana Severity: Moderate Associated Symptoms: denies: Suicidal Thoughts, Suicidal Plan Additional History Per: Prior Records Past Medical History Reviewed: Historical Data, Nursing Documentation, Vital Signs Vital Signs: Last Vital Signs Temp 97.0 F L 02/02/17 22:00 Pulse 113 H 02/02/17 22:00 Resp 16 02/02/17 22:00 BP 118/71 02/02/17 22:00 Pulse Ox 93 L 02/02/17 23:28 - Medical History PMH: Anxiety, Arthritis, Back Problems (chronic back pain ), Bipolar Disorder, COPD, Depression, Emphysema, Fractures (skull, right arm, right pinky), HTN, Pneumonia, Sleep Apnea Other PMH: Alcohol abuse Surgical History: Appendectomy, Hernia Repair (ventral), Tonsillectomy Family History: States: Unknown Family Hx - Social History Hx Tobacco Use: Yes Hx Alcohol Use: Yes (daily) Hx Substance Use: Yes (Smokes Marijuana) - Immunization History Hx Tetanus Toxoid Vaccination: Yes (UTD) Hx Influenza Vaccination: Yes Hx Pneumococcal Vaccination: Yes Review Of Systems Constitutional: Negative for: Fever Cardiovascular: Negative for: Chest Pain Respiratory: Positive for: Wheezing. Negative for: Hemoptysis Gastrointestinal: Negative for: Abdominal Pain Genitourinary: Negative for: Dysuria Musculoskeletal: Negative for: Neck Pain Skin: Negative for: Rash Neurological: Negative for: Weakness, Numbness Physical Exam - Physical Exam Appears: No Acute Distress, Other (AOB, intoxicated) Eye(s): bilateral: PERRL, Other (Conjunctival injection) Neck: Normal ROM, Supple Cardiovascular: Rhythm Regular Respiratory: No Accessory Muscle Use, Wheezing Gastrointestinal/Abdominal: Soft, No Tenderness Back: No CVA Tenderness Extremity: Normal ROM Neurological/Psych: Oriented x3, Normal Motor, Normal Sensation ED Course And Treatment - Laboratory Results Result Diagrams: 02/02/17 18:27 02/02/17 18:27 O2 Sat by Pulse Oximetry: 93 Pulse Ox Interpretation: Other Interpretation Of Abnormal: Borderline Progress Note: Pt is medically stable for detox admission. However, I advise internal medicine consultation for management of his COPD. Reassessment Condition: Improved Progress - Interventions Interventions:: Observation - Medications Administered Inhaled nebulized: Anticholinergic, Beta-2 agonist - Data Reviewed Data Reviewed: Lab, Old records - Patient Status Patient status: Mostly improved - Continuity of Care Discussed patient case with:: Patient, ED Nurse Disposition Counseled Patient/Family Regarding: Studies Performed, Diagnosis, Smoking Cessation - Disposition Disposition: HOSPITALIZED Disposition Time: 00:34 Condition: STABLE - Clinical Impression Clinical Impression: COPD (chronic obstructive pulmonary disease), Alcohol use disorder, severe, dependence Decision To Admit - Pt Status Changed To: Hospital Disposition Of: Inpatient - Admit Certification Admit to Inpatient:: After my assessment, the patient will require hospitalization for at least two midnights. This is because of the severity of symptoms shown, intensity of services needed, and/or the medical risk in this patient being treated as an outpatient. - InPatient: Physician Admission Certification: I certify that this patient requires 2 or more midnights of care for the following reason:: Detox. - . Bed Request Type: Detox Admitting Physician: Garland Kyle Patient Diagnosis: COPD (chronic obstructive pulmonary disease), Alcohol use disorder, severe, dependence
--- NOTE | 2017-02-03 05:52 | PCM.BM ---
<Iqra Martini - Last Filed: 02/03/17 05:49> Treatment assets and liabiliti Patient Assests: cooperative, ADL independent, negotiates basic needs Patient Liabilities: financial problems, poor support system, substance abuse, medical problems, legal issue - Milieu Protocol Maintain good personal hygiene: daily Encourage regular showers, daily Remind patient to perform daily oral care, daily Assist patient to perform ADL's Conduct patient checks and document Observation sheet: Q15 minutes Maintain personal safety: every shift Educate patient to report safety concerns to staff, every shift Monitor environment for contraband/sharps Medication safety: Monitor for expected outcome, potential side effects: every shift, Assess barriers to learning: every shift, Assess readiness for medication education: every shift <Jessy Montano - Last Filed: 02/03/17 10:43> Family Contact Family involvement: Patient does not wish Family/SO involvement Family contact: Patient declines to allow family contact at present - Goals for Treatment Patient goals for treatment: Complete detox and fulfill his medical and legal appointments upon discharge. Discharge/Continuing Care - Education Needs Education Needs: Patient Medication, Patient Diagnosis/Disease Process, Patient Coping Skills, Patient Anger Management skills, Patient Community resources, Patient Personal Hygiene/Grooming - Discharge Discharge Criteria: Tolerates medication w/o severe side effects, No longer exhibiting s/s of withdrawal, Reduction of target symptoms Discharge to:: Other - Additional Comments 02/03/17 10:37 Pt. is homeless and is chosing to continue that lifestyle feusing inpatient treatment options and [facility] placement due to impending legal and medical appointments related to a lawsuit. - Treatment Team Participation Patient/Family/SO Statement: 02/03/17 10:38 "I wanna detox and go back to [facility] let me sleep at night." Discussed with Family/SO: No Was Patient/Family/SO present at Treatment Team Meeting: Yes <Garland Kyle - Last Filed: 02/03/17 13:08> - Diagnosis (1) Alcohol use disorder, severe, dependence Status: Acute Interventions: 02/03/17 13:08 * Assess 7x/week regarding severity of withdrawal * Educate regarding risks, benefits, side effects and alternatives of medications * Use Motivational Interviewing for abstinence * Use CBT for relapse prevention * Medication management for withdrawal symptoms * Encourage medication assisted treatment *
[2017-02-03] MEDS: Multiple Vitamins Tab PO SCH (09:20)
--- NOTE | 2017-02-03 10:46 | PCM.PSYCH ---
Initial Psychiatric Evaluation - Initial Psychiatric Evaluation Type of Admission: Voluntary Legal Status: Capacity Chief Complaint (in patient's own words): "I had to stop" History of Present Illness and Precipitating Events: The patient is seen, chart reviewed and case discussed. This is a 51-year-old male, single with no child, unemployed and homeless. [facility] The patient admits to drinking 24 ounce beers, 6 or 7 of them every day and he states he used to drink liquor to in the past. He first use as a teenager and then since age 25 it became problem drinking. He has been to detox 5 or 6 times and rehabilitation once at [facility] 20 years ago. He also smokes marijuana on and off but denies all other drugs. He states he used to use cocaine in the past. He smokes 2 packs per day cigarettes. He reports anxiety and has a history of depression. He was supposed to be taking Lexapro 20 mg plus he says he takes it on and off and he wants to continue with 10 mg. Past psych history: No admissions, no suicide attempts, takes Lexapro for anxiety and depression. Family psych history: Sister has bipolar disorder. His father committed suicide when he was a toddler. Medical history: Emphysema and rheumatoid arthritis. He says he has nerve damage in his food and some ankle problems. He is positive for hepatitis B Current Medications: Active Medications Generic Name Dose Route Start Last Admin Trade Name Freq PRN Reason Stop Dose Admin Albuterol 1 puff 02/03/17 08:42 Ventolin Hfa 90 Mcg/Actuation (8 G) INH RQ4 PRN SOB Clonidine HCl 0.1 mg 02/03/17 08:39 Catapres PO Q4H PRN Symptoms of alcohol withdrawl Escitalopram Oxalate 10 mg 02/03/17 10:15 Lexapro PO DAILY OMAR Folic Acid 1 mg 02/03/17 10:00 02/03/17 09:20 Folic Acid PO 1 mg DAILY OMAR Administration Gabapentin 300 mg 02/03/17 10:00 02/03/17 09:20 Neurontin PO 300 mg BID OMAR Administration Hydroxyzine HCl 50 mg 02/03/17 08:40 Atarax PO Q6H PRN Anxiety Ibuprofen 600 mg 02/03/17 08:40 Motrin Tab PO Q6H PRN Pain, moderate (4-7) Lorazepam 1 mg 02/03/17 03:02 Ativan PO Q4H PRN Symptoms of alcohol withdrawl Lorazepam 2 mg 02/03/17 09:00 02/03/17 09:20 Ativan PO 02/07/17 08:59 2 mg Q6H OMAR Administration Taper Multivitamins 1 tab 02/03/17 10:00 02/03/17 09:20 Hexavitamin PO 1 tab DAILY OMAR Administration Fluticasone/Salmeterol 1 puff 02/03/17 10:00 Advair Diskus 250/50 INH RBID OMAR Thiamine HCl 100 mg 02/03/17 10:00 02/03/17 09:20 Vitamin B1 Tab PO 100 mg DAILY OMAR Administration Tiotropium [place] 18 mcg 02/03/17 10:05 Spiriva INH RQ24 OMAR Trazodone HCl 100 mg 02/03/17 03:02 Desyrel PO HS PRN Insomnia Past Psychiatric History - Past Psychiatric History Previous Treatment History: Intensive Outpatient Pertinent Medical Hx (Current Medical&Sleep Prob, Allergies): Allergies Allergy/AdvReac Type Severity Reaction Status Date / Time No Known Allergies Allergy Verified 02/01/17 02:28 Aclidinium [place] [Tudorza Pressair] 1 puff INH BID 11/11/16 Escitalopram [Lexapro] 20 mg PO DAILY 12/15/16 Folic Acid 1 mg PO DAILY 12/15/16 Promethazine DM [Phenergan DM Syrup] 5 ml PO Q8 PRN #3 oz 12/15/16 Albuterol HFA [Ventolin HFA 90 mcg/actuation (8 g)] 2 puff IH [id number] #1 puff Fluticasone/Salmeterol [Advair 250-50 Diskus] 2 puff INH BID #1 inh 12/31/16 Naproxen [Naprosyn] 500 mg PO BID #30 tablet 02/01/17 Review of Systems - Psychiatric Psychiatric: Abnormal Sleep Pattern, Anxiety, Difficulty Concentrating. absent : Hallucinations, Homicidal Ideation, Paranoia, Suicidal Ideation Mental Status Examination - Personal Presentation Personal Presentation: Looks older than stated age (disheveled) - Affect Affect: Constricted - Motor Activity Motor Activity: Calm - Reliability in Providing Information Reliability in Providing Information: Good - Speech Speech: Organized - Mood Mood: Anxious - Formal Thought Process Formal Thought Process: No Impairment - Cognitive Functions Orientation: Person, Place, Situation, Time Sensorium: Alert Attention/Concentration: Easily distracted Abstract Thinking: [place] Estimate of Intelligence: Below average Judgement: Intact, as evidence by: Insight regarding need for hospitalization Memory: Recent intact, as evidence by: Ability to recall events of the day, Remote impaired as evidenced by: Inability to recall sig life events - Risk Risk: Seizure, Withdrawal, Diminished functioning - Strength & Assets Inventory Strength & Assets Inventory: Cooperative - Limitations Limitations: Living alone, Other (unemployed and has leagl problems (arrest for drinking in public)) DSM 5 DX - DSM 5 DSM 5 Diagnosis: Alcohol withdrawal, uncomplicated Alcohol use d/o - severe Panic d/o Cannabis use d/o - severe Tobacco use d/o - severe - Recommended/Plan of Treatment Treatment Recommendations and Plan of Treatment: Ativan detox due to elevated LFTs Gabapentin for augmentation As needed meds and vitamins Attend groups and activities VA for abstinence and CBT for relapse prevention Support and psychoeducation Consider and encourage MAT Refer to after care Nicotine patch Mi for abstinence from tobacco 33 min Projected ELOS: 4 days Prognosis: fair - Smoking Cessation Smoking Cessation Initiated: Yes
[2017-02-03] MEDS: Fluticasone-Salmeterol 250-50mcg Diskus INH SCH ×2 (11:54→22:04)
[2017-02-04] MEDS ORDERED: Tiotropium 18 mcg Cap For Inhalation INH SCH (08:00)
[2017-02-04] MEDS: Fluticasone-Salmeterol 250-50mcg Diskus INH SCH ×2 (09:34→21:48)
[2017-02-04] MEDS: Tiotropium 18 mcg Cap For Inhalation INH SCH (09:34)
[2017-02-04] MEDS: Multiple Vitamins Tab PO SCH (09:35)
[2017-02-04] MEDS: Albuterol HFA 90 mcg/actuation (8 g) INH PRN (17:34)
--- NOTE | 2017-02-05 00:06 | PCM.PYCHPN ---
Psychiatric Progress Note - Psychiatric Progress Note Patient seen today, length of contact: 17 min Patient Chief Complaint: "I am OK" Problems Identified/Issues Discussed: The pt is seen, chart reviewed, case discussed with staff. The pt is compliant with medications and reports no side-effects. Symptoms are improving but needs more time to stabilize. After care discussed, support and psychoeducation given. He is still not interested in any formal after care b/c of "legal problems" Medication Change: Yes (detox changes daily) Medical Record Reviewed: Yes Mental Status Examination - Cognitive Function Orientation: Person, Place, Situation, Time Memory: Impaired Attention: WNL Concentration: Poor Association: WNL Fund of Knowledge: WNL - Mood Mood: Anxious - Affect Affect: Constricted - Speech Speech: Appropriate - Formal Thought Process Formal Thought Process: No Impairment - Suicidal Ideation Suicidal Ideation: No - Homicidal Ideation Homicidal Ideation: No Goal/Treatment Plan - Goal/Treatment Plan Need for Continued Stay: Discharge may exacerbated symptoms, Severe functional impairment Progress Toward Problem(s) and Goals/Treatment Plan: Ativan detox due to elevated LFTs Gabapentin for augmentation As needed meds and vitamins Attend groups and activities PR for abstinence and CBT for relapse prevention Support and psychoeducation Consider and encourage MAT Refer to after care Nicotine patch PR for abstinence from tobacco Estimated Date of D/C: 02/07/17
[2017-02-05] MEDS: Multiple Vitamins Tab PO SCH (10:04)
[2017-02-05] MEDS: Fluticasone-Salmeterol 250-50mcg Diskus INH SCH ×2 (10:06→20:37)
[2017-02-05] MEDS: Tiotropium 18 mcg Cap For Inhalation INH SCH (10:07)
[2017-02-05] MEDS: Albuterol HFA 90 mcg/actuation (8 g) INH PRN (21:35)
--- NOTE | 2017-02-05 23:25 | PCM.PYCHPN ---
Psychiatric Progress Note - Psychiatric Progress Note Patient seen today, length of contact: 17 min Patient Chief Complaint: I'm feeling better Problems Identified/Issues Discussed: The pt is seen, chart reviewed, case discussed with staff. The pt is compliant with medications and reports no side-effects. Symptoms are improving but needs more time to stabilize.~ After care discussed, support and psychoeducation given Medical Problems: Emphysema, COPD DSM 5 Symptoms Update: Etoh, THC use disorder Medication Change: Yes (detox changes daily) Medical Record Reviewed: Yes Mental Status Examination - Cognitive Function Orientation: Person, Place, Situation, Time Memory: Intact Attention: WNL Concentration: Poor Association: WNL Fund of Knowledge: WNL - Mood Mood: Anxious - Affect Affect: Constricted - Speech Speech: Appropriate - Formal Thought Process Formal Thought Process: No Impairment - Suicidal Ideation Suicidal Ideation: No - Homicidal Ideation Homicidal Ideation: No Goal/Treatment Plan - Goal/Treatment Plan Need for Continued Stay: Discharge may exacerbated symptoms, Severe functional impairment Progress Toward Problem(s) and Goals/Treatment Plan: Continue medications Support and psychoeducation daily Attend groups and activities daily After care planning by LINDA Estimated Date of D/C: 02/07/17 - Smoking Cessation Smoking Cessation Initiated: Yes
[2017-02-06] MEDS: Multiple Vitamins Tab PO SCH (09:53)
[2017-02-06] MEDS: Fluticasone-Salmeterol 250-50mcg Diskus INH SCH (09:56)
--- NOTE | 2017-02-06 11:14 | PCM.PYCHDC ---
Mental Status Examination - Mental Status Examination Orientation: Person, Place, Situation, Time Memory: Intact Mood: Anxious Affect: Other (full and anxious) Speech: Appropriate Attention: WNL Concentration: WNL Association: WNL Fund of Knowledge: WNL Formal Thought Process: No Impairment Description of patient's judgement and insight: Limited/Limited Psychotic Thoughts and Behaviors: Denied Suicidal Ideation: No Current Homicidal Ideation?: No Discharge Summary - Discharge Note Psychiatric History (includes Medical, Family, Personal Hx): He was admitted for alcohol detox. Consultations:: List each consultation separately and include: 1. Reason for request. 2. Findings. 3. Follow-up Consultations: None Summary of Hospital Course include:: 1. Description of specific treatment plan utilized for patients during their course of treatmen. 2. Summarize the time- course for resolution of acute symptoms and/or regressed behaviors. 3. Describe issues identified and worked on during hospitalization. 4. Describe medication utilized. 5. Describe medical problems identified and treated. 6. Reassessment of suicide risk Summary of Hospital Course: The pt was admitted and started on treatment with psychotherapy, support, psychoeducation and medications.~ ME and CBT used. The pt attended groups and activities, as well as milieu therapy. All the risks and benefits of medications are discussed and the patient understood and agreed. The pt improved with the treatments provided.~ After care discussed with the patient. - Diagnosis (1) Alcohol abuse Status: Acute (2) Alcohol dependence Status: Acute (3) Alcohol use Status: Acute - Final Diagnosis (DSM 5) Condition upon Discharge: STABLE Disposition: HOME/ ROUTINE Follow-up Treatment Plan: Continue medications Support and psychoeducation daily Attend groups and activities daily After care planning by LINDA Prescriptions/Medication Reconciliation: Escitalopram [Lexapro] 10 mg PO DAILY #15 tab Folic Acid 1 mg PO DAILY #30 tab Gabapentin [Neurontin] 300 mg PO BID #60 cap Thiamine [Vitamin B1 Tab] 100 mg PO DAILY #20 tab - Smoking Cessation Smoking Cessation Medication prescribed: Yes - Antipsychotic Medications Pt discharged on 2 or more routine antipsychotic medications: No
[2017-02-06 14:22] VITALS: BP 121/85; PULSE 86; RESP 18; TEMP 97.4; O2SAT 96
== END 2017-02-06 14:05 | disposition home or self-care (01) | DRG 750 ==
LOC: C.ER 17:28 → C.7D 02-03 00:15
PROVIDERS: ADMIT Psychiatry & Neurology Psychiatry; ATTEND Psychiatry & Neurology Psychiatry
PROC: HZ2ZZZZ Detoxification Services for Substance Abuse Treatment (ICD-10-PCS; principal; 2017-02-03)
PROC: HZ46ZZZ Group Counseling for Substance Abuse Treatment, Psychoeducation (ICD-10-PCS; 2017-02-03)
PROC: HZ59ZZZ Individual Psychotherapy for Substance Abuse Treatment, Supportive (ICD-10-PCS; 2017-02-03)
PROC: HZ90ZZZ Pharmacotherapy for Substance Abuse Treatment, Nicotine Replacement (ICD-10-PCS; 2017-02-03)
DX: F10.239 Alcohol dependence with withdrawal, unspecified (principal); F12.10 Cannabis abuse, uncomplicated; F17.210 Nicotine dependence, cigarettes, uncomplicated; F41.0 Panic disorder [episodic paroxysmal anxiety]; J43.9 Emphysema, unspecified; B19.10 Unspecified viral hepatitis B without hepatic coma; M06.9 Rheumatoid arthritis, unspecified; Z59.0 Homelessness

== ENCOUNTER 2017-02-12 19:53 | Emergency (ER) | payer MEDICAID ==
[2017-02-12 19:53] VITALS: BMI 32.3
[2017-02-12 20:27] LABS: BASO # 0.1 K/uL (0.0-0.2); BASO % 0.8 % (0.0-2.0); EOS # 0.3 K/uL (0.0-0.7); EOS % 3.4 % (0.0-4.0); HEMOGLOBIN 16.9 g/dL (12.0-18.0); LYMPH # 2.2 K/uL (1.0-4.3); LYMPH % 22.3 % (20.0-40.0); MEAN CELL VOLUME 98.8 fL (80.0-94.0); MEAN CORPUSCULAR HEMOGLOBIN 33.7 pg (27.0-31.0); MEAN CORPUSCULAR HGB CONC 34.1 g/dL (33.0-37.0); MEAN PLATELET VOLUME 8.1 fL (7.2-11.7); MONO # 0.8 K/uL (0.0-0.8); MONO % 8.4 % (0.0-10.0); NEUT # 6.3 K/uL (1.8-7.0); NEUT % 65.1 % (50.0-75.0); RBC 5.02 Mil/uL (4.40-5.90); RED CELL DISTRIBUTION WIDTH 14.6 % (11.5-14.5); WHITE BLOOD COUNT 9.7 K/uL (4.8-10.8)
[2017-02-12 20:31] LABS: SQUAMOUS EPITHIAL < 1 /hpf (0-5); URINE BILIRUBIN NEGATIVE (NEGATIVE); URINE BLOOD NEGATIVE (NEGATIVE); URINE CLARITY Clear (Clear); URINE COLOR Straw (YELLOW); URINE GLUCOSE (UA) NORMAL (Normal); URINE LEUKOCYTE ESTERASE NEG Leu/uL (Negative); URINE NITRATE NEGATIVE (NEGATIVE); URINE PROTEIN NEGATIVE (NEGATIVE); URINE UROBILINOGEN NORMAL mg/dL (0.2-1.0)
[2017-02-12 20:39] LABS: ALBUMIN 3.6 g/dL (3.5-5.0)
[2017-02-12 20:40] LABS: BARBITURATES, UR NEGATIVE (NEGATIVE); BENZODIAZEPINES, UR NEGATIVE (NEGATIVE)
[2017-02-12 20:42] LABS: ALB/GLOB RATIO 1.1 (1.0-2.1); AST/SGOT 79 U/L (17-59); BLOOD UREA NITROGEN 10 mg/dL (9-20); GFR AFRICAN-AMERICAN > 60; GFR NON-AFRICAN AMERICAN > 60
[2017-02-12 20:43] LABS: ALT/SGPT 128 U/L (21-72); CALCIUM 8.7 mg/dl (8.6-10.4); OPIATES, UR NEGATIVE (NEGATIVE)
[2017-02-12 20:44] LABS: PHENCYCLIDINE, UR NEGATIVE (NEGATIVE)
--- NOTE | 2017-02-12 22:19 | C.PDOC ---
History Of Present Illness 51 year old male present to the ED seeking detox from alcohol and admits to drinking today. Patient has a history of homelessness, malingering, and psychiatric concerns since 2010. He has had many prior evaluations and denies any physical complaints at this time. Time Seen by Provider: 02/12/17 20:04 Chief Complaint (Nursing): Psychiatric Evaluation History Per: Patient History/Exam Limitations: no limitations Suicide/Self Injury Attempted (Context): None Involuntary Hold By: None Recent travel outside of the [place]: No Additional History Per: Prior Records Past Medical History Reviewed: Historical Data, Nursing Documentation, Vital Signs Vital Signs: Last Vital Signs Temp 98.0 F 02/12/17 19:59 Pulse 85 02/12/17 19:59 Resp 18 02/12/17 19:59 BP 123/78 02/12/17 19:59 Pulse Ox 96 02/12/17 23:13 - Medical History PMH: Anxiety, Arthritis (arthritis of neck and back), Back Problems (chronic back pain ), Bipolar Disorder, COPD, Depression, Emphysema, Fractures (skull, right pinky), HTN, Pneumonia, Sleep Apnea Surgical History: Appendectomy, Hernia Repair (ventral), Tonsillectomy - [facility] Procedures DETOXIFICATION SERVICES FOR SUBSTANCE ABUSE TREATMENT (02/03/17) GROUP HEALTH UNIT SUPERVISOR FOR SUBSTANCE ABUSE TREATMENT, PSYCHOEDUCATION (02/03/17) INDIV PSYCHOTHERAPY FOR SUBSTANCE ABUSE TREATMENT, SUPPORT (02/03/17) PHARMACOTHERAPY FOR SUBSTANCE ABUSE, NICOTINE REPLACE (02/03/17) Family History: States: Unknown Family Hx - Social History Hx Tobacco Use: Yes (smokes two packs a day ) Hx Alcohol Use: Yes Hx Substance Use: Yes (Smokes Marijuana) - Immunization History Hx Tetanus Toxoid Vaccination: Yes (UTD) Hx Influenza Vaccination: Yes Hx Pneumococcal Vaccination: Yes Review Of Systems Constitutional: Negative for: Fever, Chills Cardiovascular: Negative for: Chest Pain Respiratory: Negative for: Shortness of Breath Gastrointestinal: Negative for: Nausea, Vomiting, Abdominal Pain Physical Exam - Physical Exam Appears: Non-toxic, No Acute Distress, Other (Alcohol on breath. Patient appears as pink puffer. ) Skin: Warm, Dry Head: Atraumatic Eye(s): bilateral: Normal Inspection, PERRL, EOMI Oral Mucosa: Moist Neck: Supple Chest: Symmetrical, No Deformity Cardiovascular: Rhythm Regular Respiratory: Accessory Muscle Use Gastrointestinal/Abdominal: Soft, No Tenderness, No Distention, No Guarding, No Rebound Neurological/Psych: Oriented x3, Normal Speech, Normal Cognition, Normal Cranial Nerves, Normal Motor, Normal Sensation Gait: Steady ED Course And Treatment - Laboratory Results Result Diagrams: 02/12/17 20:17 02/12/17 20:17 Lab Interpretation: Abnormal (tox + THC, etoh 94 @ 8PM) O2 Sat by Pulse Oximetry: 96 (room air ) Progress Note: 2129: Patient was given Librium for irritability. Reevaluation Time: 01:00 Reassessment Condition: Improved (sleeping comfortably) Medical Decision Making Medical Decision Makin: homeless alcoholic since 2012 pending eval by Crisis for Detox Disposition - Disposition Disposition Time: 01:00 Condition: GOOD Forms: [facility] (Telugu) - Clinical Impression Clinical Impression: Alcohol abuse - Scribe Statement The provider has reviewed the documentation as recorded by the Scribe Josi Torres All medical record entries made by the Scribe were at my direction and personally dictated by me. I have reviewed the chart and agree that the record accurately reflects my personal performance of the history, physical exam, medical decision making, and the department course for this patient. I have also personally directed, reviewed, and agree with the discharge instructions and disposition. Physician Patient Turnover Patient Signed Over To: Bob Hawk Handoff Comments: disp per Crisis Eval
[2017-02-13 01:02] VITALS: BP 130/80; PULSE 84; RESP 14; TEMP 98; O2SAT 97
== END 2017-02-13 01:01 | disposition home or self-care (01) ==
LOC: C.ER 19:53
DX: F10.10 Alcohol abuse, uncomplicated (principal); Z59.0 Homelessness; F17.210 Nicotine dependence, cigarettes, uncomplicated

== ENCOUNTER 2017-08-24 22:02 | Emergency (ER) | payer MEDICAID ==
[2017-08-24 22:02] VITALS: BMI 31.7
[2017-08-24] MEDS ORDERED: Albuterol-Ipratrop 3 mg / 0.5 (3 ml) UD INH STA (22:13)
[2017-08-24] MEDS ORDERED: Albuterol-Ipratrop 3 mg / 0.5 (3 ml) UD ONE ×2 (22:18→23:00)
[2017-08-24 22:24] VITALS: RESP 18
[2017-08-24] MEDS ORDERED: Albuterol 0.083% Inhal Sol (2.5 mg/3 mL) UD IH STA ×2 (22:51→22:52)
--- NOTE | 2017-08-24 23:23 | C.PDOC ---
History Of Present Illness 52 year old male, whose PMHx includes Asthma and Alcoholism, presents to the ED with complaint of shortness of breath which began around 2 days ago and request for alcohol detox. Patient states he has been using an Albuterol at home without significant relief. Patient was given one breathing treatment prior to physical evaluation. He denies fever, chills, cough, chest pain, suicidal/ homicidal ideation. Time Seen by Provider: 08/24/17 22:38 Chief Complaint (Nursing): Shortness Of Breath History Per: Patient History/Exam Limitations: no limitations Onset/Duration Of Symptoms: Days Current Symptoms Are (Timing): Still Present Initiating Event: Upper Respiratory Illness Quality: denies: "Pain" Current Respiratory Medications: See Home Med List, Albuterol Associated Symptoms: denies: Fever, Chills, Chest Pain, Bloody Cough, Productive Cough Additional History Per: Patient Past Medical History Reviewed: Historical Data, Nursing Documentation, Vital Signs Vital Signs: Last Vital Signs Temp 97.9 F 08/24/17 22:07 Pulse 93 H 08/24/17 22:07 Resp 18 08/24/17 22:23 BP 111/71 08/24/17 22:07 Pulse Ox 94 L 08/24/17 23:27 - Medical History PMH: Anxiety, Arthritis (arthritis of neck and back), Back Problems (chronic back pain ), Bipolar Disorder, COPD, Depression, Diabetes, Emphysema, Fractures (skull, right pinky), Pneumonia, Sleep Apnea Denies: Hepatitis, HIV, HTN, Chronic Kidney Disease, Seizures, Sexually Transmitted Disease Surgical History: Appendectomy, Hernia Repair (ventral), Tonsillectomy - [facility] Procedures DETOXIFICATION SERVICES FOR SUBSTANCE ABUSE TREATMENT (02/03/17) GROUP BREADING MACHINE TENDER FOR SUBSTANCE ABUSE TREATMENT, PSYCHOEDUCATION (02/03/17) INDIV PSYCHOTHERAPY FOR SUBSTANCE ABUSE TREATMENT, SUPPORT (02/03/17) INSPECTION OF LARYNX, ENDO (06/05/17) INTRODUCE OF OTH THERAP SUBST INTO RESP TRACT, VIA OPENING (08/04/17) PHARMACOTHERAPY FOR SUBSTANCE ABUSE, NICOTINE REPLACE (02/03/17) Family History: States: Unknown Family Hx - Social History Hx Tobacco Use: Yes (smokes two packs a day ) Hx Alcohol Use: Yes Hx Substance Use: Yes (marijuana) - Immunization History Hx Tetanus Toxoid Vaccination: Yes (UTD) Hx Influenza Vaccination: No Hx Pneumococcal Vaccination: Yes Physical Exam - Physical Exam Appears: Non-toxic, No Acute Distress, Other (sleeping on stretcher in supine position, with no signs of respiratory distress ) Skin: Normal Color, Warm, Dry Head: Atraumatic, Normacephalic Eye(s): bilateral: Normal Inspection Oral Mucosa: Moist Neck: Supple Chest: Symmetrical, No Deformity, No Tenderness Cardiovascular: Rhythm Regular, No Murmur Respiratory: No Rales, No Rhonchi, Wheezing (diffuse, expiratory ) Extremity: Normal ROM, Capillary Refill (less than 2 seconds ) Neurological/Psych: Oriented x3, Normal Speech, Normal Cognition Gait: Steady ED Course And Treatment O2 Sat by Pulse Oximetry: 94 Progress Note: Albuterol INH administered. Reevaluation Time: 00:44 Reassessment Condition: Improved (sleeping quietly, Lungs clear) Disposition - Disposition Disposition Time: 00:45 Condition: IMPROVED Forms: [facility] (Citizen Of [place]) - Clinical Impression Clinical Impression: Asthma exacerbation in COPD, Alcohol use disorder, severe, dependence - Scribe Statement The provider has reviewed the documentation as recorded by the Scribe (Marci Fontenot) Provider Attestation: All medical record entries made by the Scribe were at my direction and personally dictated by me. I have reviewed the chart and agree that the record accurately reflects my personal performance of the history, physical exam, medical decision making, and the department course for this patient. I have also personally directed, reviewed, and agree with the discharge instructions and disposition. Physician Patient Turnover Patient Signed Over To: Maria Esther Boyce Handoff Comments: pending sobriety
[2017-08-25 02:07] VITALS: TEMP 98; O2SAT 98
[2017-08-25 06:12] VITALS: BP 150/86; PULSE 79
== END 2017-08-25 06:11 | disposition home or self-care (01) ==
LOC: C.ER 22:02
DX: J45.901 Unspecified asthma with (acute) exacerbation (principal); J44.9 Chronic obstructive pulmonary disease, unspecified; F10.20 Alcohol dependence, uncomplicated; F17.210 Nicotine dependence, cigarettes, uncomplicated; E11.9 Type 2 diabetes mellitus without complications

== ENCOUNTER 2018-04-19 01:09 | Emergency (ER) | payer MEDICAID ==
[2018-04-19 01:09] VITALS: BMI 32.5
[2018-04-19] MEDS ORDERED: Albuterol-Ipratrop 3 mg / 0.5 (3 ml) UD ONE (01:19)
[2018-04-19] MEDS ORDERED: Albuterol 0.083% Inhal Sol (2.5 mg/3 mL) UD IH STA ×2 (02:17→02:41)
[2018-04-19 02:21] VITALS: RESP 16
[2018-04-19] MEDS ORDERED: Albuterol 0.083% Inhal Sol (2.5 mg/3 mL) UD ONE (03:01)
--- NOTE | 2018-04-19 03:11 | C.PDOC ---
History Of Present Illness 52 yo male with PMHx significant for alcohol abuse, COPD, psych hx, brought in by ambulance for alcohol intoxication. On arrival, patient is asking for a place to sleep. EMS also found patient to be wheezing, hypoxic with PulseOx 93%RA. At present time,Patient is acutely intoxicated, awake, verbal, not in resp distress.Otherwise patient denies any trauma, chest pain, nausea, vomiting, or SI/HI. Limited HPI and ROS due to patient's intoxicated state. Time Seen by Provider: 04/19/18 01:15 Chief Complaint (Nursing): Respiratory Distress History Per: Patient History/Exam Limitations: intoxication Onset/Duration Of Symptoms: Hrs Current Symptoms Are (Timing): Still Present Past Medical History Reviewed: Historical Data, Nursing Documentation, Vital Signs Vital Signs: Last Vital Signs Temp 97.6 F 04/19/18 01:25 Pulse 73 04/19/18 02:21 Resp 16 04/19/18 02:21 BP 113/67 04/19/18 01:25 Pulse Ox 96 04/19/18 02:21 - Medical History PMH: Anxiety, Arthritis (arthritis of neck and back), Back Problems (chronic back pain ), Bipolar Disorder, COPD, Depression, Diabetes, Emphysema, Fractures (skull, right pinky), Pneumonia, Sleep Apnea Denies: Hepatitis, HIV, HTN, Chronic Kidney Disease, Seizures, Sexually Transmitted Disease Surgical History: Appendectomy, Hernia Repair (ventral), Tonsillectomy - [facility] Procedures DETOXIFICATION SERVICES FOR SUBSTANCE ABUSE TREATMENT (02/03/17) GROUP CRIME LABORATORY ANALYST FOR SUBSTANCE ABUSE TREATMENT, PSYCHOEDUCATION (02/03/17) INDIV PSYCHOTHERAPY FOR SUBSTANCE ABUSE TREATMENT, SUPPORT (02/03/17) INSPECTION OF LARYNX, ENDO (06/05/17) INTRODUCE OF OTH THERAP SUBST INTO RESP TRACT, VIA OPENING (08/04/17) PHARMACOTHERAPY FOR SUBSTANCE ABUSE, NICOTINE REPLACE (02/03/17) Family History: States: Unknown Family Hx - Social History Hx Tobacco Use: Yes (smokes two packs a day ) Hx Alcohol Use: Yes Hx Substance Use: Yes (marijuana) - Immunization History Hx Tetanus Toxoid Vaccination: Yes (UTD) Hx Influenza Vaccination: No Hx Pneumococcal Vaccination: Yes Review Of Systems Review Of Systems: ROS cannot be obtained secondary to pt's inabilty to answer questions. Physical Exam - Physical Exam Appears: Non-toxic, No Acute Distress, Other (+ Strong alcohol on breath) Skin: Normal Color, Warm, No Rash Head: Atraumatic, Normacephalic Eye(s): bilateral: PERRL Oral Mucosa: Moist, No Drooling Tongue: Normal Appearing Neck: Trachea Midline, Supple Chest: Symmetrical, No Deformity, No Tenderness Cardiovascular: Rhythm Regular, No Murmur, No JVD Respiratory: No Decreased Breath Sounds, No Accessory Muscle Use, No Rales, No Rhonchi, No Stridor, Wheezing (scattered expiratory wheezing B/L) Gastrointestinal/Abdominal: Soft, No Tenderness, No Distention, No Guarding, No Rebound Extremity: Normal ROM, No Tenderness, No Pedal Edema, No Swelling Extremity: Bilateral: Atraumatic, Normal Color And Temperature, Normal ROM Neurological/Psych: Normal Motor, Normal Sensation, Normal Reflexes, Other (A ppears intoxicated, responsive to questions) ED Course And Treatment O2 Sat by Pulse Oximetry: 96 (RA) Pulse Ox Interpretation: Normal - Radiology CXR: Interpreted by Me, Viewed By Me CXR Interpretation: Yes: No Acute Disease Progress Note: Administered albuterol nebs x2 and 125 mg Solu-Medrol. CXR ordered and reviewed. Pt was OBS in ED for 5 hours, remained stable. On re- eval, pt is ambulatory in ED with stable gait, tolerate Po swell, not in resp. distress. PulsEOx 98% RA. Head:AT/NC. neck: Supple. Lungs: CTA B/L, BS equal B/L. ABd: benign. Neurologicaly intact. CXR- no acute new changes. Pt has clinicla findings c/w asthma exacerbation, alcohol intoxication. Pt request discharge now. Stable for d/c now. Disposition Counseled Patient/Family Regarding: Studies Performed, Diagnosis, Need For Followup - Disposition Referrals: [facility] [Outside] Disposition: HOME/ ROUTINE Disposition Time: 06:30 Condition: STABLE Additional Instructions: Take medication as prescribed Follow up with PMD in 2-3 days for re-evaluation. return to ED if any new changes. Instructions: Exacerbation of COPD, Alcohol Abuse and Alcoholism (DC) Forms: [employer] (Kazakh) - Clinical Impression Clinical Impression: Chronic obstructive lung disease, Alcohol abuse - PA / WELL CONTROL INSTRUCTOR / Resident Statement MD/DO has reviewed & agrees with the documentation as recorded. - Scribe Statement The provider has reviewed the documentation as recorded by the Scribe (Oksana Wallis) All medical record entries made by the Scribe were at my direction and personally dictated by me. I have reviewed the chart and agree that the record accurately reflects my personal performance of the history, physical exam, medical decision making, and the department course for this patient. I have also personally directed, reviewed, and agree with the discharge instructions and disposition.
[2018-04-19 06:06] VITALS: BP 114/56; PULSE 78; TEMP 98.7
[2018-04-19 06:31] VITALS: O2SAT 96
--- NOTE | 2018-04-19 09:35 | RAD ---
Chest x-ray two views History: Cough. COMPARISON: 07/01/2017 Findings: Biapical pleural thickening with upper lobe granulomatous changes. Prominent diffuse increased interstitial lung markings. Bilateral hilar prominence. Right infrahilar consolidative opacification. Blunted right costophrenic angle. Degenerative changes in the spine and shoulders. Impression: Biapical pleural thickening with upper lobe granulomatous changes. Prominent diffuse increased interstitial lung markings. Bilateral hilar prominence. Right infrahilar consolidative opacification. Blunted right costophrenic angle.
== END 2018-04-19 06:13 | disposition home or self-care (01) ==
LOC: C.ER 01:09
DX: F10.10 Alcohol abuse, uncomplicated (principal); J44.9 Chronic obstructive pulmonary disease, unspecified; E11.9 Type 2 diabetes mellitus without complications; F17.210 Nicotine dependence, cigarettes, uncomplicated
CPT/HCPCS: 71046; 82948; 96372; 99285; J2930

== ENCOUNTER 2018-05-25 20:36 | Emergency (ER) | payer MEDICAID ==
[2018-05-25 20:36] VITALS: BMI 31.0
[2018-05-25 21:02] VITALS: TEMP 98.3
--- NOTE | 2018-05-25 21:02 | C.PDOC ---
History Of Present Illness 52 year old male presents to the ED c/o SOB, chest discomfort. Patient was seen at [facility] on 05/23 for similar complaints, patient had a chest x-ray done which showed COPD. Patient was given nebulizers and prednisone however patient states he has not filled his prescriptions. Patient states he still smoking on a daily bases. Patient denies fever, chills, nausea, vomit, CP, palpitations, rash, weakness, numbness, headache. Time Seen by Provider: 05/25/18 21:01 Chief Complaint (Nursing): Chest Pain History Per: Patient History/Exam Limitations: no limitations Onset/Duration Of Symptoms: Days Current Symptoms Are (Timing): Still Present Quality: Tightness Recent travel outside of the [place]: No Additional History Per: Patient Past Medical History Reviewed: Historical Data, Nursing Documentation, Vital Signs Vital Signs: Last Vital Signs Temp 98.3 F 05/25/18 20:57 Pulse 95 H 05/25/18 20:57 Resp 20 05/25/18 20:57 BP 155/97 H 05/25/18 20:57 Pulse Ox 95 05/25/18 20:57 - Medical History PMH: Anxiety, Arthritis (arthritis of neck and back), Back Problems (chronic back pain ), Bipolar Disorder, COPD, Depression, Diabetes, Emphysema, Fractures (skull, right pinky), Pneumonia, Sleep Apnea Denies: Hepatitis, HIV, HTN, Chronic Kidney Disease, Seizures, Sexually Transmitted Disease Surgical History: Appendectomy, Hernia Repair (ventral), Tonsillectomy - [facility] Procedures DETOXIFICATION SERVICES FOR SUBSTANCE ABUSE TREATMENT (02/03/17) GROUP PASTRY COOK APPRENTICE FOR SUBSTANCE ABUSE TREATMENT, PSYCHOEDUCATION (02/03/17) INDIV PSYCHOTHERAPY FOR SUBSTANCE ABUSE TREATMENT, SUPPORT (02/03/17) INSPECTION OF LARYNX, ENDO (06/05/17) INTRODUCE OF OTH THERAP SUBST INTO RESP TRACT, VIA OPENING (08/04/17) PHARMACOTHERAPY FOR SUBSTANCE ABUSE, NICOTINE REPLACE (02/03/17) Family History: States: Unknown Family Hx - Social History Hx Tobacco Use: Yes (smokes two packs a day ) Hx Alcohol Use: Yes Hx Substance Use: Yes (marijuana) - Immunization History Hx Tetanus Toxoid Vaccination: Yes (UTD) Hx Influenza Vaccination: No Hx Pneumococcal Vaccination: Yes Review Of Systems Constitutional: Negative for: Fever, Chills Cardiovascular: Positive for: Chest Pain. Negative for: Palpitations Respiratory: Positive for: Cough, Shortness of Breath Gastrointestinal: Negative for: Nausea, Vomiting, Abdominal Pain Skin: Negative for: Rash Neurological: Negative for: Weakness, Numbness, Headache, Dizziness Physical Exam - Physical Exam Appears: Non-toxic, No Acute Distress Skin: Warm, Dry Head: Normacephalic Eye(s): bilateral: Normal Inspection Oral Mucosa: Moist Teeth: No Normal Dentition (poor dentition) Neck: Supple Chest: Symmetrical Cardiovascular: Rhythm Regular Respiratory: No Rales, Rhonchi (scattered), No Wheezing Gastrointestinal/Abdominal: Soft, No Tenderness, No Guarding, No Rebound Extremity: Bilateral: Atraumatic, Normal Color And Temperature, Normal ROM Neurological/Psych: Oriented x3, Normal Speech, Normal Cognition Gait: Steady ED Course And Treatment - Laboratory Results Result Diagrams: 05/25/18 21:26 05/25/18 21:26 ECG: Interpreted By Me, Viewed By Me ECG Rhythm: Sinus Rhythm (95), Nonspecific Changes O2 Sat by Pulse Oximetry: 95 (ON RA) Pulse Ox Interpretation: Normal - Radiology CXR: Interpreted by Me, Viewed By Me CXR Interpretation: Yes: COPD, Other (unchnaged from 05/23/18). No: Infiltrates, Fracture, Pnemothorax Progress Note: Plan: - ABG. - EKG. - Labs. - CXR. - Duoneb. - Aspirin 325 mg PO. - Blood culture. - UA Disposition Counseled Patient/Family Regarding: Studies Performed, Diagnosis, Need For Followup, Smoking Cessation - Disposition Referrals: Mandy Arciniega MD [IM] - Disposition: HOME/ ROUTINE Disposition Time: 21:01 Condition: FAIR Additional Instructions: Please return if symptoms recur. Please take your medications Instructions: Chest Pain (DC) Forms: [facility] (Nepalese) - Clinical Impression Clinical Impression: Chest pain, COPD (chronic obstructive pulmonary disease) - Scribe Statement The provider has reviewed the documentation as recorded by the Scribe Florin Hilario All medical record entries made by the Scribe were at my direction and personally dictated by me. I have reviewed the chart and agree that the record accurately reflects my personal performance of the history, physical exam, medical decision making, and the department course for this patient. I have also personally directed, reviewed, and agree with the discharge instructions and disposition.
[2018-05-25] MEDS ORDERED: Aspirin 325 mg EC Tablets PO STA (21:13)
[2018-05-25] MEDS: Albuterol-Ipratrop 3 mg / 0.5 (3 ml) UD IH SCH ×3 (21:15→21:53)
[2018-05-25] MEDS ORDERED: Albuterol-Ipratrop 3 mg / 0.5 (3 ml) UD ONE ×2 (21:31→21:47)
[2018-05-25] MEDS ORDERED: Aspirin 325 mg EC Tablets PO ONE (21:31)
[2018-05-25 21:36] LABS: BASO # 0.1 K/uL (0.0-0.2); BASO % 0.9 % (0.0-2.0); EOS # 0.1 K/uL (0.0-0.7); EOS % 1.2 % (0.0-4.0); LYMPH # 1.9 K/uL (1.0-4.3); LYMPH % 16.8 % (20.0-40.0); MEAN CELL VOLUME 97.9 fL (80.0-94.0); MEAN CORPUSCULAR HEMOGLOBIN 33.7 pg (27.0-31.0); MEAN CORPUSCULAR HGB CONC 34.5 g/dL (33.0-37.0); MEAN PLATELET VOLUME 7.8 fL (7.2-11.7); NEUT # 8.2 K/uL (1.8-7.0); NEUT % 72.1 % (50.0-75.0); NRBC % 0.2 % (0.0-2.0); RBC 4.75 Mil/uL (4.40-5.90); WHITE BLOOD COUNT 11.4 K/uL (4.8-10.8)
[2018-05-25 21:44] LABS: PROTHROMBIN TIME 10.8 SECONDS (9.7-12.2)
[2018-05-25 21:54] LABS: ALB/GLOB RATIO 1.5 (1.0-2.1); ALT/SGPT 80 U/L (21-72); AST/SGOT 45 U/L (17-59); BLOOD UREA NITROGEN 16 mg/dL (9-20); CALCIUM 9.2 mg/dl (8.6-10.4); GFR NON-AFRICAN AMERICAN > 60
[2018-05-25 21:55] LABS: ABG ALLEN TEST POS; ARTERIAL BLOOD GAS HCO3 25.9 mmol/L (21-28); ARTERIAL BLOOD GAS O2 SAT 98.4 % (95-98); ARTERIAL BLOOD GAS PCO2 41 mm/Hg (35-45); ARTERIAL BLOOD GAS PH 7.41 (7.35-7.45); ARTERIAL BLOOD GAS PO2 89 mm/Hg (80-100); ARTERIAL BLOOD GAS TCO2 27.3 mmol/L (22-28)
[2018-05-25 22:06] LABS: B-TYPE NATRIURETIC PEPTIDE 66.6 pg/mL (0-900)
[2018-05-25 22:29] LABS: URINE BACTERIA RARE (<OCC); URINE BILIRUBIN NEGATIVE (NEGATIVE); URINE BLOOD NEGATIVE (NEGATIVE); URINE CLARITY Clear (Clear); URINE COLOR Yellow (YELLOW); URINE GLUCOSE (UA) NORMAL (Normal); URINE LEUKOCYTE ESTERASE TRACE Leu/uL (Negative); URINE PROTEIN NEGATIVE (NEGATIVE); URINE UROBILINOGEN NORMAL mg/dL (0.2-1.0)
[2018-05-26 05:31] VITALS: BP 140/90; PULSE 90; RESP 16; O2SAT 99
--- NOTE | 2018-05-26 08:52 | RAD ---
Chest x-ray single frontal view HISTORY: Shortness of breath. COMPARISON: 04/19/2018 Findings: Mild venous congestion. Right hilar prominence. Mild patchy increased markings at the lung bases. Tortuous aorta. Degenerative changes in the spine and shoulders. Impression: Mild venous congestion. Right hilar prominence. Mild patchy increased markings at the lung bases. Tortuous aorta.
--- NOTE | 2018-05-29 12:31 | CARD ---
APPROVED REPORT Date of service: 05/25/2018 EKG Measurement Heart [id number] <Conclusion> Normal sinus rhythm Normal ECG
== END 2018-05-26 05:31 | disposition home or self-care (01) ==
LOC: C.ER 20:36
DX: J44.9 Chronic obstructive pulmonary disease, unspecified (principal); R07.9 Chest pain, unspecified; Z87.891 Personal history of nicotine dependence

== ENCOUNTER 2018-06-07 23:41 | Emergency (ER) | payer MEDICAID ==
[2018-06-07 23:41] VITALS: BMI 31.0
--- NOTE | 2018-06-08 00:16 | C.PDOC ---
History Of Present Illness Patient presents to the ER stating he has been drinking and wants a place to stay the night. Patient also reports having some SOB, he was seen at [facility] yesterday for similar with negative work up. Denies fever or chills. Time Seen by Provider: 06/08/18 00:16 Chief Complaint (Nursing): Shortness Of Breath History Per: Patient History/Exam Limitations: no limitations Onset/Duration Of Symptoms: Days (Yesterday) Current Symptoms Are (Timing): Still Present Initiating Event: Other (Not known) Current Respiratory Medications: See Home Med List Severity: None Pain Scale Rating Of: 0 Associated Symptoms: Other (SOB). denies: Fever, Chills Recent travel outside of the [place]: No Past Medical History Reviewed: Historical Data, Nursing Documentation, Vital Signs Vital Signs: Last Vital Signs Temp 97.6 F 06/07/18 23:51 Pulse 86 06/07/18 23:51 Resp 24 06/07/18 23:51 BP 104/70 06/07/18 23:51 Pulse Ox 96 06/07/18 23:51 - Medical History PMH: Anxiety, Arthritis (arthritis of neck and back), Back Problems (chronic back pain ), Bipolar Disorder, COPD, Depression, Diabetes, Emphysema, Fractures (skull, right pinky), Pneumonia, Sleep Apnea Denies: Hepatitis, HIV, HTN, Chronic Kidney Disease, Seizures, Sexually Transmitted Disease Surgical History: Appendectomy, Hernia Repair (ventral), Tonsillectomy - [facility] Procedures DETOXIFICATION SERVICES FOR SUBSTANCE ABUSE TREATMENT (02/03/17) GROUP DIRECTOR OF FINANCE FOR SUBSTANCE ABUSE TREATMENT, PSYCHOEDUCATION (02/03/17) INDIV PSYCHOTHERAPY FOR SUBSTANCE ABUSE TREATMENT, SUPPORT (02/03/17) INSPECTION OF LARYNX, ENDO (06/05/17) INTRODUCE OF OTH THERAP SUBST INTO RESP TRACT, VIA OPENING (08/04/17) PHARMACOTHERAPY FOR SUBSTANCE ABUSE, NICOTINE REPLACE (02/03/17) Family History: States: No Known Family Hx - Social History Hx Tobacco Use: Yes (smokes two packs a day ) Hx Alcohol Use: Yes Hx Substance Use: Yes (marijuana) - Immunization History Hx Tetanus Toxoid Vaccination: Yes (UTD) Hx Influenza Vaccination: No Hx Pneumococcal Vaccination: Yes Review Of Systems Constitutional: Negative for: Fever, Chills Cardiovascular: Negative for: Chest Pain, Palpitations Respiratory: Positive for: Shortness of Breath Gastrointestinal: Negative for: Nausea, Vomiting Neurological: Negative for: Weakness, Numbness Physical Exam - Physical Exam Appears: Non-toxic, Other (ETOH on breath) Skin: Warm, Dry Head: Normacephalic Oral Mucosa: Moist Teeth: Other (Poor dentition) Neck: Trachea Midline, Supple Chest: Symmetrical, No Tenderness Cardiovascular: Rhythm Regular Respiratory: No Rales, Rhonchi (Scattered), No Wheezing Gastrointestinal/Abdominal: Soft, No Tenderness Neurological/Psych: Oriented x3 ED Course And Treatment O2 Sat by Pulse Oximetry: 96 Pulse Ox Interpretation: Normal Reevaluation Time: 05:31 Reassessment Condition: Improved Disposition Counseled Patient/Family Regarding: Studies Performed, Diagnosis, Need For Followup - Disposition Referrals: [facility] [Outside] Disposition: HOME/ ROUTINE Disposition Time: 00:16 Condition: FAIR Instructions: Alcohol Abuse and Alcoholism (DC) Forms: [facility] (Tristanian) - Clinical Impression Clinical Impression: Alcohol intoxication - Scribe Statement The provider has reviewed the documentation as recorded by the Scribe Radames Jaeger All medical record entries made by the Scribe were at my direction and personally dictated by me. I have reviewed the chart and agree that the record accurately reflects my personal performance of the history, physical exam, medical decision making, and the department course for this patient. I have also personally directed, reviewed, and agree with the discharge instructions and disposition.
[2018-06-08 05:40] VITALS: BP 133/80; PULSE 93; RESP 18; TEMP 97.6; O2SAT 95
== END 2018-06-08 05:40 | disposition home or self-care (01) ==
LOC: C.ER 23:41
DX: F10.129 Alcohol abuse with intoxication, unspecified (principal)

== ENCOUNTER 2018-06-11 02:38 | Emergency (ER) | payer MEDICAID, OTHER ==
[2018-06-11 02:39] VITALS: BMI 31.0
[2018-06-11] MEDS: Albuterol-Ipratrop 3 mg / 0.5 (3 ml) UD IH SCH ×2 (03:15→03:45)
--- NOTE | 2018-06-11 03:18 | C.PDOC ---
History Of Present Illness 52 year old male with PMHx of COPD presents to the ED c/o COPD exacerbation, feeling SOB. Patient also reports feeling anxious, think he mioght be withdrawing from alcohol. Patient states his last drink was last night. Patient is homeless, contrary to triage patient's respiratory rate is normal. Patient denies fever, chills, CP, palpitations, headache, nausea, vomit, dizziness, weakness, numbness. Time Seen by Provider: 06/11/18 03:09 Chief Complaint (Nursing): Anxiety History Per: Patient History/Exam Limitations: no limitations Onset/Duration Of Symptoms: Hrs Current Symptoms Are (Timing): Still Present Suicide/Self Injury Attempted (Context): None Modifying Factor(s): Alcohol Associated Symptoms: Anxiety. denies: Depression, Suicidal Thoughts, Suicidal Plan Recent travel outside of the [place]: No Additional History Per: Patient Past Medical History Reviewed: Historical Data, Nursing Documentation, Vital Signs Vital Signs: Last Vital Signs Temp 97.9 F 06/11/18 02:49 Pulse 94 H 06/11/18 02:49 Resp 30 H 06/11/18 02:49 BP 131/80 06/11/18 02:49 Pulse Ox 94 L 06/11/18 02:49 - Medical History PMH: Anxiety, Arthritis (arthritis of neck and back), Back Problems (chronic back pain ), Bipolar Disorder, COPD, Depression, Diabetes, Emphysema, Fractures (skull, right pinky), Pneumonia, Sleep Apnea Denies: Hepatitis, HIV, HTN, Chronic Kidney Disease, Seizures, Sexually Transmitted Disease Surgical History: Appendectomy, Hernia Repair (ventral), Tonsillectomy - [facility] Procedures DETOXIFICATION SERVICES FOR SUBSTANCE ABUSE TREATMENT (02/03/17) GROUP MANAGER LATIN FOR SUBSTANCE ABUSE TREATMENT, PSYCHOEDUCATION (02/03/17) INDIV PSYCHOTHERAPY FOR SUBSTANCE ABUSE TREATMENT, SUPPORT (02/03/17) INSPECTION OF LARYNX, ENDO (06/05/17) INTRODUCE OF OTH THERAP SUBST INTO RESP TRACT, VIA OPENING (08/04/17) PHARMACOTHERAPY FOR SUBSTANCE ABUSE, NICOTINE REPLACE (02/03/17) Family History: States: Unknown Family Hx - Social History Hx Tobacco Use: Yes (smokes two packs a day ) Hx Alcohol Use: Yes Hx Substance Use: Yes (marijuana) - Immunization History Hx Tetanus Toxoid Vaccination: Yes (UTD) Hx Influenza Vaccination: No Hx Pneumococcal Vaccination: Yes Review Of Systems Constitutional: Negative for: Fever, Chills Cardiovascular: Negative for: Chest Pain Respiratory: Positive for: Shortness of Breath. Negative for: Cough, Wheezing Gastrointestinal: Negative for: Nausea, Vomiting, Abdominal Pain Skin: Negative for: Rash Neurological: Negative for: Weakness, Numbness, Headache, Dizziness Psych: Positive for: Anxiety Physical Exam - Physical Exam Appears: Non-toxic, No Acute Distress Skin: Normal Color, Warm, Dry, Other (rubor, facial) Head: Atraumatic, Normacephalic Eye(s): bilateral: Normal Inspection Oral Mucosa: Moist Neck: Normal ROM, Supple Chest: Symmetrical Cardiovascular: Rhythm Regular Respiratory: No Rales, No Rhonchi, Wheezing Gastrointestinal/Abdominal: Soft, No Tenderness, No Guarding, No Rebound Extremity: Normal ROM Neurological/Psych: Oriented x3, Normal Speech, Normal Cognition Gait: Steady ED Course And Treatment O2 Sat by Pulse Oximetry: 94 Pulse Ox Interpretation: Normal (lower range of nl) Progress Note: Plan: - Duoneb. - Prednisone 40 mg PO. Pt was slwwping during entire stay with improved vitals post nebs. Pt ambulated to bathroom with steay gait and is stable for discharge Reassessment Condition: Improved Disposition - Disposition Disposition: HOME/ ROUTINE Disposition Time: 06:12 Condition: GOOD Instructions: Chronic Obstructive Pulmonary Disease (COPD), Including Emphysema, Alcohol Abuse and Alcoholism (DC) Forms: [facility] (Thai) - Clinical Impression Clinical Impression: COPD exacerbation, Alcohol intoxication - PA / EDGE CUTTING MACHINE OPERATOR / Resident Statement MD/DO has reviewed & agrees with the documentation as recorded. - Scribe Statement The provider has reviewed the documentation as recorded by the Scribotis Hilario All medical record entries made by the Cathyibotis were at my direction and personally dictated by me. I have reviewed the chart and agree that the record accurately reflects my personal performance of the history, physical exam, medical decision making, and the department course for this patient. I have also personally directed, reviewed, and agree with the discharge instructions and disposition.
[2018-06-11] MEDS ORDERED: Albuterol 0.083% Inhal Sol (2.5 mg/3 mL) UD ONE (04:07)
[2018-06-11 06:12] VITALS: O2SAT 94
[2018-06-11 06:15] VITALS: BP 122/57; PULSE 9; RESP 24; TEMP 98
== END 2018-06-11 06:13 | disposition home or self-care (01) ==
LOC: C.ER 02:38
DX: J44.1 Chronic obstructive pulmonary disease with (acute) exacerbation (principal); F10.129 Alcohol abuse with intoxication, unspecified; F17.210 Nicotine dependence, cigarettes, uncomplicated

== ENCOUNTER 2018-06-11 07:10 | Emergency (ER) | payer OTHER ==
[2018-06-11 07:19] VITALS: BMI 29.5
[2018-06-11 07:22] VITALS: TEMP 98; O2SAT 95
--- NOTE | 2018-06-11 07:56 | C.PDOC ---
History Of Present Illness 52 years old homeless male presents to ED requesting detox from alcohol. Patient admits to drinking daily and states last intake was last night. Denies SI or HI. Patient reports previous detox in October 2016 in [place], [place] for 35 days. Patient also states "I do not want to stay at a long term, they are not comfortable." Time Seen by Provider: 06/11/18 07:26 Chief Complaint (Nursing): Substance Abuse History Per: Patient History/Exam Limitations: no limitations Onset/Duration Of Symptoms: Hrs Current Symptoms Are (Timing): Still Present Suicide/Self Injury Attempted (Context): None Modifying Factor(s): Alcohol Associated Symptoms: denies: Suicidal Thoughts, Suicidal Plan Involuntary Hold By: None Recent travel outside of the [place]: No Past Medical History Reviewed: Historical Data, Nursing Documentation, Vital Signs Vital Signs: Last Vital Signs Temp 98 F 06/11/18 07:19 Pulse 85 06/11/18 07:19 Resp 22 06/11/18 07:19 BP 160/92 H 06/11/18 07:19 Pulse Ox 95 06/11/18 07:19 - Medical History PMH: Anxiety, Arthritis (arthritis of neck and back), Back Problems (chronic back pain ), Bipolar Disorder, COPD, Depression, Diabetes, Emphysema, Fractures (skull, right pinky), Pneumonia, Sleep Apnea Surgical History: Appendectomy, Hernia Repair (ventral), Tonsillectomy - [facility] Procedures DETOXIFICATION SERVICES FOR SUBSTANCE ABUSE TREATMENT (02/03/17) GROUP KIER TENDER FOR SUBSTANCE ABUSE TREATMENT, PSYCHOEDUCATION (02/03/17) INDIV PSYCHOTHERAPY FOR SUBSTANCE ABUSE TREATMENT, SUPPORT (02/03/17) INSPECTION OF LARYNX, ENDO (06/05/17) INTRODUCE OF OTH THERAP SUBST INTO RESP TRACT, VIA OPENING (08/04/17) PHARMACOTHERAPY FOR SUBSTANCE ABUSE, NICOTINE REPLACE (02/03/17) Family History: States: Unknown Family Hx - Social History Hx Tobacco Use: Yes (smokes two packs a day ) Hx Alcohol Use: Yes Hx Substance Use: Yes (marijuana) - Immunization History Hx Tetanus Toxoid Vaccination: No (UTD) Hx Influenza Vaccination: Yes Hx Pneumococcal Vaccination: Yes Review Of Systems Constitutional: Negative for: Fever, Chills Gastrointestinal: Negative for: Nausea, Vomiting, Abdominal Pain, Diarrhea Skin: Negative for: Rash Neurological: Negative for: Weakness, Numbness Physical Exam - Physical Exam Appears: Non-toxic, No Acute Distress Skin: Normal Color, Warm, Dry, No Rash Head: Atraumatic, Normacephalic Eye(s): bilateral: Normal Inspection, PERRL, EOMI Oral Mucosa: Moist Neck: Normal ROM, Supple Chest: Symmetrical, No Tenderness Cardiovascular: Rhythm Regular Respiratory: Normal Breath Sounds, No Rales, No Rhonchi, No Wheezing Gastrointestinal/Abdominal: Bowel Sounds (Active ), Soft, No Tenderness Extremity: Normal ROM Extremity: Bilateral: Atraumatic, Normal Color And Temperature, Normal ROM Neurological/Psych: Oriented x3, Normal Speech Gait: Steady ED Course And Treatment O2 Sat by Pulse Oximetry: 95 (RA) Pulse Ox Interpretation: Normal Progress Note: Pt was seen by esthela newman and at this time d/c with list of local detox facilities and shelters. Pt is ambulating with steady gait, speaks in full sentences. Disposition Counseled Patient/Family Regarding: Studies Performed, Diagnosis, Need For Followup - Disposition Referrals: Mandy Arciniega MD [IM] - [facility] [Outside] [facility] [Outside] Disposition: HOME/ ROUTINE Disposition Time: 07:53 Condition: STABLE Additional Instructions: FOLLOW UP IN CLINIC AND THE LIST OF LOCAL SHELTERS AND DETOX FACILITIES PROVIDED TO YOU. IF ANY NEW OR CONCERNING SYMPTOMS DEVELOP RETURN TO ED. Instructions: Drug Abuse and Drug Addiction (DC), Alcohol Abuse and Alcoholism (DC) Forms: [email or web address] (Kyrgyz) - Clinical Impression Clinical Impression: Alcohol dependence - PA / FEATHER STITCHER / Resident Statement MD/DO has reviewed & agrees with the documentation as recorded. - Scribe Statement The provider has reviewed the documentation as recorded by the Scribotis Castillo All medical record entries made by the Cathyibotis were at my direction and personally dictated by me. I have reviewed the chart and agree that the record accurately reflects my personal performance of the history, physical exam, medical decision making, and the department course for this patient. I have also personally directed, reviewed, and agree with the discharge instructions and disposition.
[2018-06-11 08:01] VITALS: BP 149/80; PULSE 92; RESP 21
== END 2018-06-11 08:07 | disposition home or self-care (01) ==
LOC: C.ER 07:10
DX: F10.20 Alcohol dependence, uncomplicated (principal)

== ENCOUNTER 2018-06-28 00:16 | Emergency (ER) | payer MEDICAID, OTHER ==
[2018-06-28 00:17] VITALS: BMI 29.5
--- NOTE | 2018-06-28 00:28 | C.PDOC ---
History Of Present Illness Patient presents to the ER with a complaint of SOB. Patient has a Hx of chronic COPD and is also homeless. He is currently speaking in complete sentences, still smokes a pack a day and drink daily. Denies fever or chills. Time Seen by Provider: 06/28/18 00:27 Chief Complaint (Nursing): Shortness Of Breath History Per: Patient History/Exam Limitations: no limitations Onset/Duration Of Symptoms: Days Current Symptoms Are (Timing): Still Present Initiating Event: Other (Not known) Current Respiratory Medications: See Home Med List Severity: Moderate Pain Scale Rating Of: 4 Associated Symptoms: denies: Fever, Chills Recent travel outside of the [place]: No Past Medical History Reviewed: Historical Data, Nursing Documentation, Vital Signs - Medical History PMH: Anxiety, Arthritis (arthritis of neck and back), Back Problems (chronic back pain ), Bipolar Disorder, COPD, Depression, Diabetes, Emphysema, Fractures (skull, right pinky), Pneumonia, Sleep Apnea Denies: Hepatitis, HIV, HTN, Chronic Kidney Disease, Seizures, Sexually Transmitted Disease Surgical History: Appendectomy, Hernia Repair (ventral), Tonsillectomy - [facility] Procedures DETOXIFICATION SERVICES FOR SUBSTANCE ABUSE TREATMENT (02/03/17) GROUP WOODS LABORER FOR SUBSTANCE ABUSE TREATMENT, PSYCHOEDUCATION (02/03/17) INDIV PSYCHOTHERAPY FOR SUBSTANCE ABUSE TREATMENT, SUPPORT (02/03/17) INSPECTION OF LARYNX, ENDO (06/05/17) INTRODUCE OF OTH THERAP SUBST INTO RESP TRACT, VIA OPENING (08/04/17) PHARMACOTHERAPY FOR SUBSTANCE ABUSE, NICOTINE REPLACE (02/03/17) Family History: States: No Known Family Hx - Social History Hx Tobacco Use: Yes (smokes two packs a day ) Hx Alcohol Use: Yes Hx Substance Use: Yes (marijuana) - Immunization History Hx Tetanus Toxoid Vaccination: No (UTD) Hx Influenza Vaccination: Yes Hx Pneumococcal Vaccination: Yes Review Of Systems Constitutional: Negative for: Fever, Chills Cardiovascular: Negative for: Chest Pain, Palpitations Respiratory: Positive for: Shortness of Breath. Negative for: Cough Gastrointestinal: Negative for: Nausea, Vomiting Neurological: Negative for: Weakness, Numbness Physical Exam - Physical Exam Appears: Non-toxic Skin: Warm, Dry Head: Normacephalic Oral Mucosa: Moist Neck: Trachea Midline, Supple Chest: Symmetrical, No Tenderness Cardiovascular: Rhythm Regular Respiratory: Decreased Breath Sounds, No Rales, Rhonchi (Bilateral), Wheezing (Bilateral) Gastrointestinal/Abdominal: Soft, No Tenderness Neurological/Psych: Oriented x3 ED Course And Treatment - Laboratory Results Result Diagrams: 06/28/18 00:37 06/28/18 00:37 ECG: Interpreted By Me, Viewed By Me ECG Rhythm: Sinus Rhythm (87), Nonspecific Changes O2 Sat by Pulse Oximetry: 95 (Room air) Pulse Ox Interpretation: Normal - Radiology CXR: Interpreted by Me, Viewed By Me CXR Interpretation: No: Infiltrates, Fracture, Pnemothorax Progress Note: Blood work, EKG, and CXR ordered. Duoneb nebulizer and solumedrol administered. Reevaluation Time: 05:02 Reassessment Condition: Improved Critical Care Time - Critical Care Note Total Time (in mins): 30 Documented critical care: time excludes all time spent performing seperately billable procedures. Disposition Counseled Patient/Family Regarding: Studies Performed, Diagnosis, Need For Followup, Smoking Cessation - Disposition Referrals: [facility] [Outside] Disposition: HOME/ ROUTINE Disposition Time: 00:28 Condition: FAIR Instructions: COPD Including Emphysema (DC), Alcohol Abuse and Alcoholism (DC) Forms: [facility] (Swedish) - Clinical Impression Clinical Impression: Tobacco abuse, COPD (chronic obstructive pulmonary disease) with emphysema, Alcohol intoxication - Scribe Statement The provider has reviewed the documentation as recorded by the Scribotis Jaeger All medical record entries made by the Scribe were at my direction and personally dictated by me. I have reviewed the chart and agree that the record accurately reflects my personal performance of the history, physical exam, medical decision making, and the department course for this patient. I have also personally directed, reviewed, and agree with the discharge instructions and disposition.
[2018-06-28] MEDS: Albuterol-Ipratrop 3 mg / 0.5 (3 ml) UD IH SCH ×3 (00:30→01:26)
[2018-06-28 00:41] LABS: BASO % 0.2 % (0.0-2.0); LYMPH # 0.8 K/uL (1.0-4.3); LYMPH % 7.8 % (20.0-40.0); MEAN CORPUSCULAR HEMOGLOBIN 34.1 pg (27.0-31.0); MEAN CORPUSCULAR HGB CONC 34.4 g/dL (33.0-37.0); MEAN PLATELET VOLUME 7.7 fL (7.2-11.7); MONO # 1.2 K/uL (0.0-0.8); MONO % 11.8 % (0.0-10.0); NEUT # 8.3 K/uL (1.8-7.0); NEUT % 80.2 % (50.0-75.0); PLATELET COUNT 244 K/uL (130-400); RBC 4.99 Mil/uL (4.40-5.90); RED CELL DISTRIBUTION WIDTH 14.2 % (11.5-14.5); WHITE BLOOD COUNT 10.4 K/uL (4.8-10.8)
[2018-06-28] MEDS ORDERED: Albuterol-Ipratrop 3 mg / 0.5 (3 ml) UD ONE (00:43)
[2018-06-28 00:53] LABS: ABG ALLEN TEST POS; ARTERIAL BLOOD GAS HCO3 25.2 mmol/L (21-28); ARTERIAL BLOOD GAS O2 SAT 98.9 % (95-98); ARTERIAL BLOOD GAS PCO2 42 mm/Hg (35-45); ARTERIAL BLOOD GAS PH 7.39 (7.35-7.45); ARTERIAL BLOOD GAS PO2 139 mm/Hg (80-100); ARTERIAL BLOOD GAS TCO2 26.7 mmol/L (22-28)
[2018-06-28 01:04] LABS: INR 0.9; PROTHROMBIN TIME 10.1 SECONDS (9.7-12.2)
[2018-06-28 01:06] LABS: ALB/GLOB RATIO 1.7 (1.0-2.1); ALBUMIN 4.3 g/dL (3.5-5.0); ALT/SGPT 120 U/L (21-72); AST/SGOT 54 U/L (17-59); BLOOD UREA NITROGEN 19 mg/dL (9-20); CALCIUM 9.2 mg/dl (8.6-10.4); GFR NON-AFRICAN AMERICAN > 60
[2018-06-28 01:38] LABS: LYMPHOCYTE 4 % (20-40); MONOCYTE 10 % (0-10); NEUTROPHIL 82 % (50-75); PLATELET ESTIMATE NORMAL (NORMAL); REACTIVE LYMPHOCYTES 4 % (0-0); TOTAL CELLS COUNTED 100
[2018-06-28 05:04] VITALS: O2SAT 95
[2018-06-28 06:13] VITALS: BP 126/74; PULSE 91; RESP 20; TEMP 98.1
--- NOTE | 2018-06-28 10:21 | RAD ---
HISTORY: SOB COMPARISON: Chest x-ray performed 05/25/18 TECHNIQUE: Chest, one view. FINDINGS: LUNGS: No focal consolidation. Please note that chest x-ray has limited sensitivity for the detection of pulmonary masses. PLEURA: Blunting of the right costophrenic angle consistent with small pleural effusion. No definite pneumothorax . CARDIOVASCULAR: Borderline cardiomegaly. Atherosclerotic calcifications present. OSSEOUS STRUCTURES: Degenerative changes. VISUALIZED UPPER ABDOMEN: Unremarkable. OTHER FINDINGS: None. IMPRESSION: Mild pulmonary venous congestion. Small right pleural effusion. Borderline cardiomegaly. Study marked for PA review.
--- NOTE | 2018-06-29 12:22 | CARD ---
APPROVED REPORT Date of service: 06/28/2018 EKG Measurement Heart [id number] [id number] <Conclusion> Normal sinus rhythm Minimal voltage criteria for LVH, may be normal variant Borderline ECG
== END 2018-06-28 06:14 | disposition home or self-care (01) ==
LOC: C.ER 00:16
DX: J43.9 Emphysema, unspecified (principal); Z72.0 Tobacco use; F10.129 Alcohol abuse with intoxication, unspecified; Y90.6 Blood alcohol level of 120-199 mg/100 ml; E11.9 Type 2 diabetes mellitus without complications; F31.9 Bipolar disorder, unspecified; Z59.0 Homelessness
CPT/HCPCS: 36600; 71045; 80053; 80320; 82803; 85025; 85610; 85730; 87040; 93005; 96374; 99285; J2930

== ENCOUNTER 2018-07-18 00:31 | Emergency (ER) | payer MEDICAID, OTHER ==
[2018-07-18 00:31] VITALS: BMI 33.2
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
[2018-07-18] MEDS ORDERED: Albuterol-Ipratrop 3 mg / 0.5 (3 ml) UD ONE (06:19)
[2018-07-18 06:40] VITALS: BP 174/84; PULSE 91; RESP 16; TEMP 98.9; O2SAT 100
== END 2018-07-18 06:40 | disposition home or self-care (01) ==
LOC: C.ER 00:31
DX: Z00.00 Encounter for general adult medical examination without abnormal findings (principal); E11.9 Type 2 diabetes mellitus without complications; J44.9 Chronic obstructive pulmonary disease, unspecified; F17.210 Nicotine dependence, cigarettes, uncomplicated

== ENCOUNTER 2018-08-05 00:48 | Emergency (ER) | payer MEDICAID, OTHER ==
[2018-08-05 00:49] VITALS: BMI 33.2
[2018-08-05] MEDS ORDERED: Albuterol-Ipratrop 3 mg / 0.5 (3 ml) UD ONE ×2 (00:59→01:16)
--- NOTE | 2018-08-05 01:07 | C.PDOC ---
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 Patient refuses to go into a intermediate, patient states cold weather triggers his symptoms. Patient states he feels no improvement using his pump. Patient is asymptomatic now, reports that symptoms improved when he is inside. Patient has multiple prior ED evaluations at [place] and this ED for same, patient is known for having bed seeking behavior. Patient denies fever, chills, headache, CP, palpitations, rash, weakness, numbness. multiple visits with bed-seeking behavior and pmHx of COPD Time Seen by Provider: 08/05/18 00:51 History Per: Patient History/Exam Limitations: no limitations Onset/Duration Of Symptoms: Hrs Current Symptoms Are (Timing): Still Present Initiating Event: Upper Respiratory Illness Quality: Tightness Exacerbating Factor(s): Other (Cold weather) Current Respiratory Medications: See Home Med List Recent travel outside of the [place]: No Additional History Per: Patient Past Medical History Reviewed: Historical Data, Nursing Documentation, Vital Signs Vital Signs: Last Vital Signs Temp 97.6 F 08/05/18 00:57 Pulse 90 08/05/18 00:57 Resp 16 08/05/18 00:57 BP 136/86 08/05/18 00:57 Pulse Ox 95 08/05/18 00:57 - Medical History PMH: Anxiety, Arthritis (arthritis of neck and back), Back Problems (chronic back pain ), Bipolar Disorder, COPD, Depression, Diabetes, Emphysema, Fractures (skull, right pinky), Pneumonia, Sleep Apnea Denies: Hepatitis, HIV, HTN, Chronic Kidney Disease, Seizures, Sexually Transmitted Disease Surgical History: Appendectomy, Hernia Repair (ventral), Tonsillectomy - [facility] Procedures DETOXIFICATION SERVICES FOR SUBSTANCE ABUSE TREATMENT (02/03/17) GROUP ANTHROPOLOGICAL LINGUIST FOR SUBSTANCE ABUSE TREATMENT, PSYCHOEDUCATION (02/03/17) INDIV PSYCHOTHERAPY FOR SUBSTANCE ABUSE TREATMENT, SUPPORT (02/03/17) INSPECTION OF LARYNX, ENDO (06/05/17) INTRODUCE OF OTH THERAP SUBST INTO RESP TRACT, VIA OPENING (08/04/17) PHARMACOTHERAPY FOR SUBSTANCE ABUSE, NICOTINE REPLACE (02/03/17) Family History: States: Unknown Family Hx - Social History Hx Tobacco Use: Yes (smokes two packs a day ) Hx Alcohol Use: Yes Hx Substance Use: Yes (marijuana) - Immunization History Hx Tetanus Toxoid Vaccination: No (UTD) Hx Influenza Vaccination: Yes Hx Pneumococcal Vaccination: Yes Review Of Systems Constitutional: Negative for: Fever, Chills Cardiovascular: Negative for: Chest Pain, Palpitations Respiratory: Positive for: Shortness of Breath. Negative for: Cough Gastrointestinal: Negative for: Nausea, Vomiting, Abdominal Pain Skin: Negative for: Rash Neurological: Negative for: Weakness, Numbness, Headache Physical Exam - Physical Exam Appears: Non-toxic, No Acute Distress Skin: Normal Color, Warm, Dry Head: Atraumatic, Normacephalic Eye(s): bilateral: Normal Inspection Oral Mucosa: Moist Neck: Normal ROM, Supple Chest: Symmetrical Cardiovascular: Rhythm Regular Respiratory: No Rales, No Rhonchi, Wheezing (expiratory), Other (No retractions, speaking full sentences, no tachypnea) Gastrointestinal/Abdominal: Soft, No Tenderness, No Guarding, No Rebound Extremity: Normal ROM, No Tenderness, No Swelling Neurological/Psych: Oriented x3, Normal Speech, Normal Cognition Gait: Steady ED Course And Treatment O2 Sat by Pulse Oximetry: 95 (ON RA) Pulse Ox Interpretation: Normal Progress - Data Reviewed Data Reviewed: Old records Medical Decision Making Medical Decision Making: Plan: * Decadron 12 mg PO * Duoneb Disposition Counseled Patient/Family Regarding: Diagnosis, Need For Followup - Disposition Referrals: YOUR,PMD [Other] Disposition: HOME/ ROUTINE Disposition Time: 02:49 Condition: IMPROVED Instructions: Exacerbation of COPD (DC) - Clinical Impression Clinical Impression: COPD exacerbation, Homeless, Malingering - Scribe Statement The provider has reviewed the documentation as recorded by the Scribotis Hilario All medical record entries made by the Scribe were at my direction and personally dictated by me. I have reviewed the chart and agree that the record accurately reflects my personal performance of the history, physical exam, medical decision making, and the department course for this patient. I have also personally directed, reviewed, and agree with the discharge instructions and disposition.
[2018-08-05] MEDS: Albuterol-Ipratrop 3 mg / 0.5 (3 ml) UD IH SCH (01:25)
[2018-08-05 05:49] VITALS: BP 114/66; PULSE 82; RESP 16; TEMP 98.2; O2SAT 97
== END 2018-08-05 05:48 | disposition home or self-care (01) ==
LOC: C.ER 00:48
DX: J44.1 Chronic obstructive pulmonary disease with (acute) exacerbation (principal); Z76.5 Malingerer [conscious simulation]; Z59.0 Homelessness; Z87.891 Personal history of nicotine dependence
CPT/HCPCS: 94640; 99284; J8540

== ENCOUNTER 2018-08-27 02:13 | Emergency (ER) | payer MEDICAID, OTHER ==
[2018-08-27 02:14] VITALS: BMI 32.5
[2018-08-27] MEDS ORDERED: Albuterol 0.083% Inhal Sol (2.5 mg/3 mL) UD INH STA (03:26)
[2018-08-27] MEDS ORDERED: Albuterol-Ipratrop 3 mg / 0.5 (3 ml) UD IH STA (03:26)
--- NOTE | 2018-08-27 03:27 | C.PDOC ---
History Of Present Illness 53 year old male presents to the emergency department with complaints of chest tightness and difficulty breathing. Patient is well-known in the ED for homelessness and bed-seeking behavior. Patient's last visit was in [facility] 2 days ago. Time Seen by Provider: 08/27/18 03:12 Chief Complaint (Nursing): Medical Clearance History Per: Patient History/Exam Limitations: no limitations Onset/Duration Of Symptoms: Hrs Current Symptoms Are (Timing): Still Present Past Medical History Reviewed: Historical Data, Nursing Documentation, Vital Signs Vital Signs: Last Vital Signs Temp 97.6 F 08/27/18 02:47 Pulse 86 08/27/18 02:47 Resp 16 08/27/18 02:47 BP 112/69 08/27/18 02:47 Pulse Ox 96 08/27/18 02:47 - Medical History PMH: Anxiety, Arthritis (arthritis of neck and back), Back Problems (chronic back pain ), Bipolar Disorder, COPD, Depression, Diabetes, Emphysema, Fractures (skull, right pinky), Pneumonia, Sleep Apnea Denies: Hepatitis, HIV, HTN, Chronic Kidney Disease, Seizures, Sexually Transmitted Disease Surgical History: Appendectomy, Hernia Repair (ventral), Tonsillectomy - [facility] Procedures DETOXIFICATION SERVICES FOR SUBSTANCE ABUSE TREATMENT (02/03/17) GROUP SUPPORT ASSISTANT FOR SUBSTANCE ABUSE TREATMENT, PSYCHOEDUCATION (02/03/17) INDIV PSYCHOTHERAPY FOR SUBSTANCE ABUSE TREATMENT, SUPPORT (02/03/17) INSPECTION OF LARYNX, ENDO (06/05/17) INTRODUCE OF OTH THERAP SUBST INTO RESP TRACT, VIA OPENING (08/04/17) PHARMACOTHERAPY FOR SUBSTANCE ABUSE, NICOTINE REPLACE (02/03/17) Family History: States: No Known Family Hx - Social History Hx Tobacco Use: Yes (smokes two packs a day ) Hx Alcohol Use: Yes Hx Substance Use: Yes (marijuana) - Immunization History Hx Tetanus Toxoid Vaccination: No (UTD) Hx Influenza Vaccination: Yes Hx Pneumococcal Vaccination: Yes Review Of Systems Except As Marked, All Systems Reviewed And Found Negative. Constitutional: Negative for: Fever, Chills Cardiovascular: Positive for: Chest Pain Respiratory: Positive for: Shortness of Breath. Negative for: Cough Gastrointestinal: Negative for: Nausea, Vomiting, Abdominal Pain, Diarrhea Physical Exam - Physical Exam Appears: Non-toxic, No Acute Distress Skin: Normal Color, Warm, Dry Head: Atraumatic, Normacephalic Eye(s): bilateral: Normal Inspection, PERRL, EOMI Oral Mucosa: Moist Neck: Normal, Supple Chest: Symmetrical, No Tenderness Cardiovascular: Rhythm Regular, No Murmur Respiratory: No Rales, No Rhonchi, Wheezing (wheezing bilaterally) Gastrointestinal/Abdominal: Soft, No Tenderness Extremity: Normal ROM Neurological/Psych: Oriented x3, Normal Speech, Normal Cognition ED Course And Treatment O2 Sat by Pulse Oximetry: 96 (RA) Pulse Ox Interpretation: Normal - Radiology CXR: Interpreted by Me, Viewed By Me CXR Interpretation: Yes: No Acute Disease. No: Infiltrates Progress Note: Plan: CXR - no infiltrates/effusions. Albuterol and Duoneb. Prednisone 60mg PO. On re-evaluation feels better, stable for d/c. Disposition - Disposition Disposition: HOME/ ROUTINE Disposition Time: 06:21 Condition: IMPROVED Additional Instructions: Follow up with your PMD within 1-2 days. Return to ED if feel worse. 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 - Scribe Statement The provider has reviewed the documentation as recorded by the Scribe (Segundo Dixon) All medical record entries made by the Scribe were at my direction and personally dictated by me. I have reviewed the chart and agree that the record accurately reflects my personal performance of the history, physical exam, medical decision making, and the department course for this patient. I have also personally directed, reviewed, and agree with the discharge instructions and disposition.
[2018-08-27] MEDS ORDERED: Albuterol 0.083% Inhal Sol (2.5 mg/3 mL) UD ONE (03:42)
[2018-08-27] MEDS ORDERED: Albuterol-Ipratrop 3 mg / 0.5 (3 ml) UD ONE (03:42)
[2018-08-27 04:25] VITALS: BP 118/86; PULSE 68; RESP 18; TEMP 98.2
[2018-08-27 05:05] VITALS: O2SAT 96
--- NOTE | 2018-08-27 12:46 | RAD ---
Date of service: 08/27/2018 HISTORY: wheezing COMPARISON: Comparison is made with 06/28/2018 TECHNIQUE: Chest PA and lateral FINDINGS: LUNGS: Evidence of new infiltrate or consolidation in the lungs PLEURA: No significant pleural effusion identified. No pneumothorax apparent. CARDIOVASCULAR: No aortic atherosclerotic calcification present. Normal cardiac size. No pulmonary vascular congestion. OSSEOUS STRUCTURES: No significant abnormalities. VISUALIZED UPPER ABDOMEN: Normal. OTHER FINDINGS: None. IMPRESSION: No evidence of new infiltrate or consolidation in the lungs.
== END 2018-08-27 06:40 | disposition home or self-care (01) ==
LOC: C.ER 02:13
DX: J44.9 Chronic obstructive pulmonary disease, unspecified (principal); Z87.891 Personal history of nicotine dependence; Z59.0 Homelessness